=== PATIENT | female | born 1940 | race Caucasian/White ===

== ENCOUNTER 2021-08-26 13:36 | Outpatient (CLI) | payer MEDICARE, SELFPAY ==
--- NOTE | 2021-08-26 13:46 | XR_ITS ---
WS: [id number] SCREENING DEXA SCAN [employer] CLINICAL INFORMATION: OSTEOPOROSIS COMPARISON: None. FINDINGS: The L1-L4 bone mineral density measures 1.04. This corresponds to a T score score of -1.1 and Z score of 0.1. Left femoral neck bone mineral density measures 0.887 g/cm2. This corresponds to a T score of -1.0 an d Z score of 0.6. Right femoral neck bone mineral density measures 0.873 g/cm2. This corresponds to a T score -1.1of an d Z score of 0.5. Mean femoral neck bone mineral density measures 0.880 g/cm2. This corresponds to a T score of -1.0 an d Z score of 0.5. XR/XR DEXA axial skeleton* 36340 IMPRESSION: Osteopenia at the lower end of the range. Patient's FRAX calculated 10 year probability for major osteoporotic fracture i s 26.8 % and osteoporotic hip fracture is 16.6%.
== END 2021-08-26 13:37 | disposition home or self-care (01) ==
LOC: RAD 13:40
PROVIDERS: Family Provider Internal Medicine; Visit Provider Physician Assistant
DX: M81.0 Age-related osteoporosis without current pathological fracture (principal); M85.80 Other specified disorders of bone density and structure, unspecified site
CPT/HCPCS: 77080

== ENCOUNTER → 2023-04-10 08:33 | Outpatient (BNVA) | payer MEDICARE, SELFPAY | PROVIDERS: Family Provider Internal Medicine; PCP Internal Medicine; Visit Provider Dermatology | DX: D48.5 Neoplasm of uncertain behavior of skin (principal); L57.0 Actinic keratosis; L57.8 Other skin changes due to chronic exposure to nonionizing radiation; L82.1 Other seborrheic keratosis; D18.01 Hemangioma of skin and subcutaneous tissue; L81.4 Other melanin hyperpigmentation | CPT/HCPCS: 11102; 17000; 99203 ==

== ENCOUNTER → 2023-05-03 08:04 | Outpatient (BNVA) | payer MEDICARE, SELFPAY | PROVIDERS: Family Provider Internal Medicine; PCP Internal Medicine; Visit Provider Dermatology | DX: C44.41 Basal cell carcinoma of skin of scalp and neck (principal) | CPT/HCPCS: 12032; 17311 ==

== ENCOUNTER → 2023-05-17 10:41 | Outpatient (BNVA) | payer MEDICARE, SELFPAY | PROVIDERS: Family Provider Internal Medicine; PCP Internal Medicine; Visit Provider Nurse Practitioner Family | DX: Z48.02 Encounter for removal of sutures (principal) | CPT/HCPCS: 99212 ==

== ENCOUNTER → 2023-07-18 11:23 | Outpatient (BNVA) | payer MEDICARE, SELFPAY | PROVIDERS: Family Provider Internal Medicine; PCP Internal Medicine; Visit Provider Nurse Practitioner Family | DX: L82.1 Other seborrheic keratosis (principal); L57.0 Actinic keratosis; L21.8 Other seborrheic dermatitis; L73.8 Other specified follicular disorders; D22.5 Melanocytic nevi of trunk | CPT/HCPCS: 17000; 99214 ==

== ENCOUNTER 2024-01-04 06:00 | Outpatient (CLI) | payer MEDICARE, OTHER, SELFPAY | END 2024-01-04 06:01 | disposition home or self-care (01) | LOC: RAD 01-29 06:20 | PROVIDERS: PCP Internal Medicine; Visit Provider Student in an Organized Health Care Education/Training Program | DX: M16.11 Unilateral primary osteoarthritis, right hip (principal) | CPT/HCPCS: 99204 ==

== ENCOUNTER → 2024-01-04 10:45 | Outpatient (BNVA) | payer MEDICARE, SELFPAY | PROVIDERS: PCP Internal Medicine; Visit Provider Student in an Organized Health Care Education/Training Program | DX: M16.11 Unilateral primary osteoarthritis, right hip | CPT/HCPCS: 73502 ==

== ENCOUNTER → 2024-01-17 10:13 | Outpatient (BNVA) | payer MEDICARE, OTHER, SELFPAY | PROVIDERS: PCP Internal Medicine; Visit Provider Nurse Practitioner Family | DX: L57.0 Actinic keratosis (principal); L21.8 Other seborrheic dermatitis; L73.8 Other specified follicular disorders; D22.5 Melanocytic nevi of trunk; Z85.828 Personal history of other malignant neoplasm of skin | CPT/HCPCS: 17000; 99214 ==

== ENCOUNTER 2024-02-11 11:46 | Outpatient (CLI) | payer MEDICARE, OTHER, SELFPAY ==
[2024-02-11 12:40] LABS: Basophils # 0.1 10^3/uL (0.0-0.1); Basophils % 0.6 %; Eosinophils # 0.4 10^3/uL (0.0-0.8); Lymphocytes # 3.3 10^3/uL (0.8-4.8); Lymphocytes % 35.5 %; Mean Corpuscular HGB Conc 31.2 g/dL (30-55); Mean Corpuscular Hemoglobin 29.4 pg (27-33); Mean Corpuscular Volume 94.3 fl (85-98); Mean Platelet Volume 9.6 fL (7.4-10.4); Monocytes # 0.7 10^3/uL (0.2-0.9); Monocytes % 7.3 %; Neutrophils # 4.93 10^3/uL (1.8-7.7); Neutrophils % 52.4 %; Nucleated Red Blood Cells % 0 %; Platelet Count 357 10^3/cmm (157-399); Red Blood Count 4.56 10^6/uL (3.85-5.65); White Blood Count 9.42 10^3/uL (3.29-11.43)
[2024-02-11 12:50] LABS: Alanine Aminotransferase 12 U/L (0-33); Alkaline Phosphatase 101 U/L (35-105); Aspartate Amino Transferase 13 U/L (0-32); Blood Urea Nitrogen 22 mg/dL (8-23); Calcium 9.4 mg/dL (8.5-10.5); Carbon Dioxide 26 mmol/L (22-29); Chloride 103 mmol/L (98-107); Globulin 3.3 g/dL (1.3-4.6); Glucose 206 mg/dL (65-115); Osmolality Calculated 299 mOsm/kg (285-295); Sodium 140 mmol/L (136-145); Total Bilirubin 1.7 mg/dL (0.15-1.2); Total Protein 7.3 g/dL (6.6-8.7)
[2024-02-11 13:33] LABS: Bilirubin Urine Negative (Negative); Blood Urine Non-haemolysed trace (Negative); Glucose Urine UA Negative (Normal); Ketones Urine Negative (Negative); Leukocyte Esterase Urine 3+ (Negative); Nitrate Urine Positive (Negative); Protein Urine Trace (Negative); Specific Gravity, Urine 1.014 (1.005-1.030); Urine Appearance Cloudy (CLEAR); Urine Color Yellow (Yellow)
[2024-02-11 13:39] LABS: Add Urine Microscopic? YES; Bacteria Urine EXCEEDS /hpf; Hyaline Casts Urine 2.05 /lpf; WBC Urine 21-50 /hpf (0-5)
[2024-02-11 13:54] LABS: Add Urine Culture? Yes
== END 2024-02-11 11:47 | disposition home or self-care (01) ==
LOC: LAB 11:48
PROVIDERS: PCP Internal Medicine; Visit Provider Student in an Organized Health Care Education/Training Program
DX: Z01.818 Encounter for other preprocedural examination (principal)
CPT/HCPCS: 36415; 80053; 81001; 85025; 87086

== ENCOUNTER 2024-02-15 12:04 | Observation (INO) | payer MEDICARE, SELFPAY ==
[2024-02-15] VITALS (8 sets, daily range): BP systolic 162–183; BP diastolic 79–95; PULSE 79–94; RESP 15–18; TEMP 36.6–36.7; O2SAT 92–96; BMI 29.9
--- NOTE | 2024-02-15 12:30 | XR_ITS ---
WS: [id number] Portable AP upright chest, 02/15/2024 Clinical Data: tia Comparison: Portable chest, 02/07/2018 Findings: No nodules, masses or effusions are seen. The heart is normal. The pulmonary vascularity is not increased. No pneumonia or pneumothorax is seen. The aortic arch shows minimal calcification. Th ere is a hiatal hernia behind the heart. Monitor leads are on the chest wall. XR/XR chest 1V portable [id number] Impression: Atherosclerosis.
--- NOTE | 2024-02-15 12:31 | ECG_ITS ---
[facility] Test Date: 2024-02-15 Pat Name: Parris Shin Department: Room: Gender: Female Transaction Coordinator: : 1940 Requested By: Bg Reilly Order Number: [id number] Benito MD: Prosper Mcgill M.D. Measurements Intervals [place] Rate: 83 P: 36 MD: 151 QRS: 36 QRSD: 77 T: 48 QT: 367 QTc: 431 Interpretive Statements SINUS RHYTHM POSSIBLE RIGHT VENTRICULAR CONDUCTION DELAY [RSR (QR) IN V1/V2] Compared to ECG 02/07/2018 09:19:56 No significant changes Electronically Signed On 02-15-2024 20:18:43 CDT by Prosper Mcgill M.D. [email or web address]
--- NOTE | 2024-02-15 12:35 | CT_ITS ---
WS: [id number] CT HEAD TECHNIQUE: Noncontrast CT of the head obtained from the skullbase to the vertex. CLINICAL INFORMATION: RT SIDED WEAKNESS COMPARISON: 2018 DLP: [address] scans at [facility] use at least one of these dose optimization techniques: automated e xposure control; mA and/or kV adjustment per patient size (includes targeted exams where dose is matc hed to clinical indication); or iterative reconstruction. FINDINGS: No evidence of intracranial hemorrhage or mass effect. Ventricular system and basal cisterns are murray nt. Mild small vessel changes with mild parenchymal volume loss. Tiny chronic lacunar infarcts LEFT b vick ganglia. Chronic appearing low-attenuation change in the LEFT frontal parietal white matter Small amount of fluid RIGHT maxillary sinus. Mild mucosal thickening in the paranasal sinuses. Mucosa l thickening in the sphenoid sinuses. Mastoid air cells are well aerated. CT/CT head thrombolytic 50196 IMPRESSION: 1. No evidence of intracranial hemorrhage or mass effect 2. Slight low-attenuation change in the LEFT MCA territory likely chronic or small vessel in etiology. 3. A few tiny chronic lacunar infarcts LEFT basal ganglia. 4. Vascular calcification 5. No acute intracranial findings. Notified Bg Reilly DO at 02/15/2024 12:43 PM.
--- NOTE | 2024-02-15 12:51 | ED_ITS ---
HPI - Neuro Symptoms/Deficit 2 General: Chief Complaint: Neuro Symptoms/Deficit Stated Complaint: neuro symptoms Time Seen by Provider: 02/15/24 12:32 History of Present Illness: Patient presents to the ER with trouble speaking. She reports that she knows the words she wants to say but she just cannot get them out. Also report numbness on the right side of her face and her right hand specifically the third fourth and fifth digits. Patient said these symptoms started about 1135 and by the time she arrived here approximate 1 hour later they were all resolving. Patient has not take any anticoagulation other than a daily aspirin. Patient does have high blood pressure and usually takes her medicine at night. Related Data Home Medications Medication Instructions Recorded Confirmed atorvastatin 20 mg tablet 20 mg PO DAILY 01/04/24 02/15/24 cholecalciferol (vitamin D3) 25 25 mcg PO DAILY 01/04/24 02/15/24 mcg (1,000 unit) capsule lisinopril 40 mg tablet 40 mg PO DAILY 01/04/24 02/15/24 meloxicam 15 mg tablet 15 mg PO DAILY 01/04/24 02/15/24 omeprazole 20 mg capsule,delayed 20 mg PO DAILY 01/04/24 02/15/24 release albuterol sulfate 90 mcg/actuation 2 puff inhalation Q4H PRN 02/15/24 02/15/24 aerosol inhaler Shortness Of Breath ketoconazole 2 % shampoo See Rx Instructions .Route .COMPLEX 02/15/24 02/15/24 mometasone 0.1 % topical solution 1 applic topical DAILY PRN Itching 02/15/24 02/15/24 Allergies Allergy/AdvReac Type Severity Reaction Status Date / Time Penicillins Allergy Intermediate Unknown Verified 01/04/24 10:58 Sulfa (Sulfonamide Allergy Intermediate Unknown Verified 01/04/24 10:58 Antibiotics) Review of Systems 2 General: Reports: 10 or more systems reviewed and unremarkable except in HPI and below PFSH ED 2 PFSH: Social History Smoking and tobacco/nicotine status: never used tobacco/nicotine NIH stroke score 2 NIHSS: Level Of Consciousness - 1a: 0 Level Of Consciousness Questions - 1b: Both Correct Level Of Consciousness Commands - 1c: Both Correct Best Gaze - 2: Normal Visual Colin - 3: No Visual Loss Facial Palsy - 4: N ormal Motor Arm Right - 5: No Drift Motor Arm Left - 5: No Drift Motor Leg Right - 6: No Drift Motor Leg Left - 6: No Drift Limb Ataxia - 7: A bsent Sensory - 8: Normal Best Language - 9: No Aphasia Dysarthia - 10: Normal Extinction And Inattention - 11: 0 Score: Total Score: 0 Physical Exam 2 Const: COMMON NORMALS: no acute distress, average body habitus, patient oriented x3, no limitations, healthy appearing, alert and well nourished HENMT: COMMON NORMALS: normocephalic, atraumatic, hearing grossly normal bilaterally, external ears normal, Normal external nose present and moist oral mucous membranes HEAD & SCALP: normocephalic and atraumatic NOSE: Normal external nose present EXTERNAL EAR: Yes external ears normal Eye: COMMON NORMALS: Equal, round and reactive pupils present, EOMs intact bilaterally, conjunctivae normal and no scleral icterus CONJUNCTIVA: Yes conjunctivae normal PUPIL: Yes Equal, round and reactive pupils present Neck/C-Spine: COMMON NORMALS: full ROM, no lymphadenopathy, supple, no meningeal signs, no JVD and Thyroid normal THYROID: Thyroid normal Chest: COMMONS NORMALS: normal inspection of the chest and normal palpation of entire chest wall Resp: COMMON NORMALS: normal respiratory effort, No retractions, No use of accessory muscles and clear to auscultation bilaterally AUSCULTATION: clear to auscultation bilaterally Cardio: COMMON NORMALS: no JVD, regular rate, regular rhythm, S1 normal heart sound present, S2 normal heart sound present, No gallops present (Cardio), No clicks present (Cardio), No murmurs present (Cardio) and No rub (Cardio) R ATE: regular rate RHYTHM: regular rhythm HEART SOUNDS: S1 normal heart sound present and S2 normal heart sound present GI: COMMON NORMALS: Normal to inspection, nondistended, normoactive bowel sounds present, Soft to palpation, non-tender, No hepatosplenomegaly present and no masses PALPATION: Yes Soft to palpation and Yes No hepatosplenomegaly present Neuro: COMMON NORMALS: patient oriented x3 SENSORIUM/ORIENTATION: Yes alert MENINGEAL SIGNS: Yes no meningeal signs Course 2 Vital Signs: Vital signs: Vital Signs Pulse Rate 79 02/15/24 14:00 Respiratory Rate 18 02/15/24 13:30 Blood Pressure 183/87 02/15/24 14:00 Pulse Oximetry 92 02/15/24 14:00 MDM - Neuro Symptoms/Deficit Medical Decision Making Code stroke was called on the patient patient was taken immediately back to CT where she had a negative CT scan. Patient was aphasic and could not get her words out for approximately 1 hour. Patient symptoms did resolve. Dr. Tolbert was notified while she was down here seeing another patient. We will admit the patient for TIA to complete the further workup. Patient was discussed with Dr. Garcia accepts the patient in transfer. Differential Diagnosis Likely cerebrovascular accident and transient cerebral ischemia Medical Records I reviewed the patient's medical records. Lab Data I reviewed the patient's lab results. 02/15/24 12:50 02/15/24 12:50 Radiology Impressions Chest X-Ray 02/15/24 12:30 Impression: Atherosclerosis. Head CT 02/15/24 12:35 IMPRESSION: 1. No evidence of intracranial hemorrhage or mass effect 2. Slight low-attenuation change in the LEFT MCA territory likely chronic or small vessel in etiology. 3. A few tiny chronic lacunar infarcts LEFT basal ganglia. 4. Vascular calcification 5. No acute intracranial findings. Notified Bg Reilly DO at 02/15/2024 12:43 PM. Laboratory Results WBC 8.00 10^3/uL (3.29-11.43) 02/15/24 12:50 RBC 4.55 10^6/uL (3.85-5.65) 02/15/24 12:50 Hgb 13.60 g/dL (11.27-16.99) 02/15/24 12:50 Hct 43.4 % (36-47) 02/15/24 12:50 MCV 95.4 fl (85-98) 02/15/24 12:50 MCH 29.9 pg (27-33) 02/15/24 12:50 MCHC 31.3 g/dL (30-55) 02/15/24 12:50 RDW 13.1 % (12.1-15.1) 02/15/24 12:50 Plt Count 338 10^3/cmm (157-399) 02/15/24 12:50 MPV 9.4 fL (7.4-10.4) 02/15/24 12:50 Neut % (Auto) 54.1 % 02/15/24 12:50 Lymph % (Auto) 32.5 % 02/15/24 12:50 [place] % (Auto) 9.1 % 02/15/24 12:50 Eos % (Auto) 3.5 % 02/15/24 12:50 Baso % (Auto) 0.4 % 02/15/24 12:50 Neut # (Auto) 4.33 10^3/uL (1.8-7.7) 02/15/24 12:50 Lymph # (Auto) 2.6 10^3/uL (0.8-4.8) 02/15/24 12:50 [place] # (Auto) 0.7 10^3/uL (0.2-0.9) 02/15/24 12:50 Eos # (Auto) 0.3 10^3/uL (0.0-0.8) 02/15/24 12:50 Baso # (Auto) 0.0 10^3/uL (0.0-0.1) 02/15/24 12:50 Nucleated RBC % (auto) 0 % 02/15/24 12:50 Nucleated RBCs # 0.0 /100WBC 02/15/24 12:50 PT 13.00 SECONDS (12.1-14.9) 02/15/24 12:50 INR 0.95 (0.8-1.2) 02/15/24 12:50 APTT 25.9 SECONDS (23.9-36.7) 02/15/24 12:50 Sodium 143 mmol/L (136-145) 02/15/24 12:50 Potassium 4.3 mmol/L (3.5-5.1) 02/15/24 12:50 Chloride 105 mmol/L (98-107) 02/15/24 12:50 Carbon Dioxide 28 mmol/L (22-29) 02/15/24 12:50 Anion Gap 14.3 (5-19) 02/15/24 12:50 BUN 22 mg/dL (8-23) 02/15/24 12:50 Creatinine 1.3 mg/dL (0.5-0.9) H 02/15/24 12:50 GFR Calculation Not Reportable 02/15/24 12:50 Glucose 140 mg/dL (65-115) H 02/15/24 12:50 Calculated Osmolality 302 mOsm/kg (285-295) H 02/15/24 12:50 Calcium 9.3 mg/dL (8.5-10.5) 02/15/24 12:50 Magnesium 1.6 mg/dL (1.7-2.3) L 02/15/24 12:50 Total Bilirubin 1.7 mg/dL (0.15-1.2) H 02/15/24 12:50 AST 12 U/L (0-32) 02/15/24 12:50 ALT 10 U/L (0-33) 02/15/24 12:50 Alkaline Phosphatase 102 U/L (35-105) 02/15/24 12:50 C-Reactive Protein 3.0 mg/L (0.0-4.9) 02/15/24 12:50 Total Protein 7.3 g/dL (6.6-8.7) 02/15/24 12:50 Albumin 4.0 g/dL (3.5-5.2) 02/15/24 12:50 Globulin 3.3 g/dL (1.3-4.6) 02/15/24 12:50 TSH 2.20 uIU/mL (0.27-4.20) 02/15/24 12:50 Urine Color Yellow (Yellow) 02/15/24 13:14 Urine Appearance Cloudy (CLEAR) A 02/15/24 13:14 Urine pH 7.5 (5-7) 02/15/24 13:14 Ur Specific [place] 1.015 (1.005-1.030) 02/15/24 13:14 Urine Protein 1+ (Negative) A 02/15/24 13:14 Urine Glucose (UA) Negative (Normal) 02/15/24 13:14 Urine Ketones Negative (Negative) 02/15/24 13:14 Urine Blood Non-haemolysed trace (Negative) 02/15/24 13:14 Urine Nitrate Positive (Negative) A 02/15/24 13:14 Urine Bilirubin Negative (Negative) 02/15/24 13:14 Urine Urobilinogen 1.0 mg/dL (Negative) 02/15/24 13:14 Ur Leukocyte Esterase 2+ (Negative) A 02/15/24 13:14 Urine RBC 3-5 /hpf (0-2) 02/15/24 13:14 Urine WBC 21-50 /hpf (0-5) H 02/15/24 13:14 Ur Squamous Epith Cells 21-50 /hpf (0-5) 02/15/24 13:14 Amorphous Sediment Not Reportable 02/15/24 13:14 Urine Bacteria Exceeds /hpf (NONE) 02/15/24 13:14 Hyaline Casts 1.21 /lpf 02/15/24 13:14 Urine Opiates Screen Negative ng/mL (Negative) 02/15/24 13:14 Ur Barbiturates Screen Negative ng/mL (Negative) 02/15/24 13:14 Ur Phencyclidine Scrn Negative ng/mL (Negative) 02/15/24 13:14 Ur Amphetamines Screen Negative ng/mL (Negative) 02/15/24 13:14 U Benzodiazepines Scrn Negative ng/mL (Negative) 02/15/24 13:14 Urine Cocaine Screen Negative ng/mL (Negative) 02/15/24 13:14 U Marijuana (THC) Screen Negative ng/mL (Negative) 02/15/24 13:14 Ethyl Alcohol < 10 mg/dL (0-10) 02/15/24 12:50 All radiology interpretation(s) finalized by discharge Discharge Plan Discharge Patient Disposition: Placed in Observation Clinical Impression: Brain TIA Coding Level of Care Code ED Managed Services Consultant for Luca Kerr
--- NOTE | 2024-02-15 12:54 | PC.PHAR ---
Pt has rx for Hydrocodone-apap 5-325mg 1 tablet po bid prn last fill 11/28/23 30ds #60. Pt states has but no longer taking-doesn't help and makes her feel funny.
[2024-02-15 13:02] LABS: Basophils % 0.4 %; Eosinophils # 0.3 10^3/uL (0.0-0.8); Eosinophils % 3.5 %; Hematocrit 43.4 % (36-47); Lymphocytes # 2.6 10^3/uL (0.8-4.8); Lymphocytes % 32.5 %; Mean Corpuscular HGB Conc 31.3 g/dL (30-55); Mean Corpuscular Hemoglobin 29.9 pg (27-33); Mean Corpuscular Volume 95.4 fl (85-98); Mean Platelet Volume 9.4 fL (7.4-10.4); Monocytes # 0.7 10^3/uL (0.2-0.9); Monocytes % 9.1 %; Neutrophils # 4.33 10^3/uL (1.8-7.7); Neutrophils % 54.1 %; Nucleated Red Blood Cells % 0 %; Platelet Count 338 10^3/cmm (157-399); Red Blood Count 4.55 10^6/uL (3.85-5.65); Red Cell Distribution Width 13.1 % (12.1-15.1)
[2024-02-15 13:19] LABS: INR 0.95 (0.8-1.2); Partial Thromboplastin Time 25.9 SECONDS (23.9-36.7)
[2024-02-15 13:34] LABS: Bilirubin Urine Negative (Negative); Blood Urine Non-haemolysed trace (Negative); Glucose Urine UA Negative (Normal); Ketones Urine Negative (Negative); Leukocyte Esterase Urine 2+ (Negative); Nitrate Urine Positive (Negative); Protein Urine 1+ (Negative); Specific Gravity, Urine 1.015 (1.005-1.030); Urine Appearance Cloudy (CLEAR); Urine Color Yellow (Yellow); pH Urine 7.5 (5-7)
[2024-02-15 13:38] LABS: Alanine Aminotransferase 10 U/L (0-33); Alkaline Phosphatase 102 U/L (35-105); Aspartate Amino Transferase 12 U/L (0-32); Blood Urea Nitrogen 22 mg/dL (8-23); Calcium 9.3 mg/dL (8.5-10.5); Carbon Dioxide 28 mmol/L (22-29); Chloride 105 mmol/L (98-107); Globulin 3.3 g/dL (1.3-4.6); Glucose 140 mg/dL (65-115); Magnesium 1.6 mg/dL (1.7-2.3); Osmolality Calculated 302 mOsm/kg (285-295); Sodium 143 mmol/L (136-145); Total Bilirubin 1.7 mg/dL (0.15-1.2); Total Protein 7.3 g/dL (6.6-8.7)
[2024-02-15 13:39] LABS: Add Urine Microscopic? YES; Bacteria Urine EXCEEDS /hpf; Hyaline Casts Urine 1.21 /lpf; Squamous Epithelial Cell Urine 21-50 /hpf (0-5); WBC Urine 21-50 /hpf (0-5)
[2024-02-15 13:41] LABS: Alcohol Level < 10 mg/dL (0-10)
[2024-02-15 13:42] LABS: Anion Gap 14.3 (5-19); Potassium 4.3 mmol/L (3.5-5.1)
[2024-02-15 13:43] LABS: Amphetamines Screen Urine Negative (Negative); Barbiturates Screen Urine Negative (Negative); Benzodiazepines Screen Urine Negative (Negative); Cocaine Screen Urine Negative (Negative); Opiate Screen Urine Negative (Negative); PCP Screen Urine Negative (Negative); THC Screen Urine Negative (Negative)
[2024-02-15 13:46] LABS: Add Urine Culture? Yes
--- NOTE | 2024-02-15 15:28 | P.HP_ITS ---
Providers/Chief Complaint 2 Admitting Physician: Sheila Garcia MD Primary Care Provider: Tushar Martinez DO Chief Complaint: neuro symptoms History of Present Illness Parris Shin is a 83 year old female with past medical history of right hip osteoarthritis, hyperlipidemia, hypertension, GERD presented with aphasia which started 1130 this morning. Patient reports she will do words but was not able to get the words out of her mouth. She also complained of right-sided facial numbness and right hand numbness specifically third, fourth and fifth digits. Denied any complaint of chest pain, palpitations, vomiting, nausea, dizziness or loss of consciousness. Never had similar complaints in the past. Her symptoms resolved on arrival in ER. She says she is usually active and able to do her ADLs. On arrival in ER she was found to have blood pressure in 180s. Current blood pressure is 169/81. Neurology consulted in ER recommended for MRI brain without contrast and echo. Review of Systems 2 General: Reports: 10 or more systems reviewed and unremarkable except in HPI and below Medications/Allergies Home Medications Medication Instructions Recorded Confirmed Last Taken Type atorvastatin 20 mg tablet 20 mg PO DAILY 01/04/24 02/15/24 02/14/24 History cholecalciferol (vitamin D3) 25 25 mcg PO DAILY 01/04/24 02/15/24 02/14/24 History mcg (1,000 unit) capsule lisinopril 40 mg tablet 40 mg PO DAILY 01/04/24 02/15/24 02/14/24 History meloxicam 15 mg tablet 15 mg PO DAILY 01/04/24 02/15/24 02/14/24 History omeprazole 20 mg capsule,delayed 20 mg PO DAILY 01/04/24 02/15/24 02/14/24 History release albuterol sulfate 90 mcg/actuation 2 puff inhalation Q4H PRN 02/15/24 02/15/24 Unknown History aerosol inhaler Shortness Of Breath ketoconazole 2 % shampoo See Rx Instructions .Route .COMPLEX 02/15/24 02/15/24 Unknown History mometasone 0.1 % topical solution 1 applic topical DAILY PRN Itching 02/15/24 02/15/24 Unknown History Allergies Allergy/AdvReac Type Severity Reaction Status Date / Time Penicillins Allergy Intermediate Unknown Verified 01/04/24 10:58 Sulfa (Sulfonamide Allergy Intermediate Unknown Verified 01/04/24 10:58 Antibiotics) PFSH Acute 2 PFSH: Social History Smoking and tobacco/nicotine status: never used tobacco/nicotine Vitals/I&O/Wt Last Vital Signs Pulse 88 02/15/24 15:15 Resp 18 02/15/24 15:15 BP 169/81 02/15/24 15:15 Pulse Ox 95 02/15/24 15:15 Physical Exam 2 Narrative: She is alert awake oriented x 3, hearing impaired but able to answer questions appropriately, not in acute distress Chest clear to auscultation bilaterally Cardiovascular normal heart sounds Abdomen soft nontender nondistended normal bowel sounds extremities no edema noted bilateral lower extremities Neurological speech normal, no motor or sensory deficits noted. Data 02/15/24 12:50 02/15/24 12:50 A&P Assessment and plan (1) Brain TIA: (2) UTI (urinary tract infection): Qualifiers: Urinary tract infection type: acute cystitis Hematuria presence: w [facility] hematuria Qualified Code(s): N30.00 - Acute cystitis without hematuria Plan Parris Shin is a 83 year old female with past medical history of right hip osteoarthritis, hyperlipidemia, hypertension, GERD presented with aphasia, right facial numbness and hand numbness which resolved 1 hour later on arrival to ER likely secondary to TIA, also found to have UA positive and uncontrolled blood pressure. #TIA-neurology consulted in ER Follow-up for further recommendations Check MRI brain without contrast 2D echo Fall precautions Neurochecks Bedside swallow eval and resume diet if normal. Permissive hypertension Will do aspirin, Plavix and Lipitor as per neurology recommendations. #UTI-has history of chronic UTIs but responsive to oral antibiotics as outpatient. Will start on IV ceftriaxone 1 g daily. #Hypertension-continue ADMINISTRATIVE COORDINATOR lisinopril 40 mg daily #Hyperlipidemia-continue ADMINISTRATIVE COORDINATOR atorvastatin 20 mg daily #Right hip osteoarthritis-continue ADMINISTRATIVE COORDINATOR meloxicam 15 mg daily #GERD-will do IV Pepcid 20 mg twice daily Diet-n.p.o. with sips and meds GI prophylaxis with Pepcid DVT prophylaxis with SCD CODE STATUS discussed with patient and family, she is full code for now. Attestations 2 Medical Necessity Statement*: She needs continued hospitalization not crossing 2 midnights from workup for TIA with MRI brain without contrast and 2D echo Time Spent in Patient Care: 40mins Coding Level of Care Code Acute Code for Chg Fwd Diagnoses Brain TIA G45.9 Acute cystitis without hematuria N30.00 Urinary tract infection type: acute cystitis Hematuria presence: without hematuria Time Spent (min) 40
--- NOTE | 2024-02-15 15:53 | USCV_ITS ---
Parris Shin Age: 83 Gender: F : 1940 Exam Date: 02/15/2024 16:12 Ordering Phys: Sheila Garcia MD Technologist: CT Exam Location: [facility] [place] Indication: TIA BP: 130 / 79 HR: 81 Rhythm: Sinus Technical Quality: Adequate MEASUREMENTS (Male / Female) Normal Values 2D ECHO LVOT Diameter 2.1 cm LV Ejection Fraction MOD 4C 45.8 % LV Ejection Fraction MOD 2C 58.1 % LV Ejection Fraction 2C AL 59.8 % LA Diameter 3.9 cm RA Systolic Volume 4C AL 23.2 ml RA Systolic Volume 4C MOD 23.4 ml LA Sys Volume AL 39.3 cm cubed LA Sys Volume Index AL 20.0 cm cubed/m squared Aorta at Sinotubular Diameter 2.6 cm IVC Diameter 1.7 cm M-MODE LA Ao Ratio MM 1.7 AV Cusp Separation MM 1.8 cm DOPPLER AV Peak Velocity 138.0 cm/s LVOT Peak Velocity 92.0 cm/s AV Area Cont Eq vti 2.5 cm squared AV Area Cont Eq pk 2.3 cm squared MV Peak Velocity 103.0 cm/s MV Area PHT 3.9 cm squared Mitral E to A Ratio 0.8 TR Peak Velocity 178.0 cm/s TR Peak Gradient 12.7 mmHg TV Peak E Velocity 75.0 cm/s Right Atrial Pressure 3.0 mmHg Pulmonary Artery Systolic Pressu 15.7 mmHg PV Peak Velocity 107.5 cm/s FINDINGS Left Ventricle Left ventricle is normal size. LV systolic function is normal with EF 55 to 60%. No regional wall motion abnormalities are seen. Grade 1 diastolic dysfunction Right Ventricle Normal in size and function Right Atrium Normal in size Left Atrium Normal in size Mitral Valve Mild mitral annular calcification. Trace mitral regurgitation. Aortic Valve Structurally normal aortic valve. No significant stenosis or regurgitation. Tricuspid Valve Trace tricuspid regurgitation. Insufficient TR jet to calculate RVSP Pulmonic Valve Mild pulmonic regurgitation. Pericardium Normal Aorta Normal in size IVC Appears to be normal CONCLUSIONS LV systolic function is normal with EF of 55-60% Grade 1 diastolic dysfunction Trace mitral regurgitation Trace tricuspid regurgitation Mild pulmonic regurgitation Malcolm Baugh MD (Electronically Signed) Final Date: 16 February 2024 11:24 S
[2024-02-15] MEDS: famotidine 20 mg/2 mL INJ IVP (17:25)
[2024-02-15] MEDS: levofloxacin-dextrose 5 % 750 MG/150 ML PREMIX 100 MG IV (17:25)
[2024-02-15] MEDS: sodium chloride 0.9% 1,000 ML 60 ML IV (17:26)
--- NOTE | 2024-02-15 19:17 | P.PNCC_ITS ---
Stroke Alert Activation ED Arrival Date: 02/15/24 ED Arrival Time: 12:06 ED Physican at Bedside: 12:32 Last Known Normal/at Baseline: < 1 hour ago Other Last Known Well Infomation: She was brought by private vehicle by her daughter and her granddaughter. She says that she was sitting in the living room and talking with her granddaughter when she discovered that the words would not come. She could think of the words in her head but she could not say them. She was able to walk to the car with her granddaughter under her own power. She was evaluated in triage and stroke team was activated. I called the emergency department when stroke team was activated and they notified me that the patient had expressive aphasia. I came directly to the ER and talked with Dr. Reilly. I then did a full neurologic exam on this patient and discovered that she is scheduled to have hip replacement in 2 weeks so putting her on antiplatelet therapy is going to be problematic for her. I made a commitment to see her in my office next week to clear her for surgery. She had some type of ischemic stroke 5 years ago but recovered. She does not believe she had any motor deficit during this experience earlier today. Her risk for stroke includes hypertension and she stopped aspirin recently because her joints have been bothering her and she is taking meloxicam. Stroke Alert Activated by: Triage Stroke Alert Activation Date: 02/15/24 Stroke Alert Activation Time: 12:12 Stroke MD @ Bedside Date: 02/15/24 Stroke MD @ Bedside Time: 12:20 NIH Stroke Scale Time: 12:20 NIH stroke score NIHSS: Level Of Consciousness - 1a: 0 Level Of Consciousness Questions - 1b: Both Correct Level Of Consciousness Commands - 1c: Both Correct Best Gaze - 2: Normal Visual Colin - 3: No Visual Loss Facial Palsy - 4: Normal Motor Arm Right - 5: No Drift Motor Arm Left - 5: No Drift Motor Leg Right - 6: No Drift Motor Leg Left - 6: No Drift Limb Ataxia - 7: Absent Sensory - 8: Normal Best Language - 9: No Aphasia Dysarthia - 10: Normal Extinction And Inattention - 11: 0 Score: Total Score: 0 Stroke Alert Data/Treatment Time to CT of Head: 12:35 CT Impression: 1. No evidence of intracranial hemorrha ge or mass effect 2. Slight low-attenuation change in the LEFT MCA territory likely chronic or small vessel in etiology. 3. A few tiny chronic lacunar infarcts LEFT basal ganglia. 4. Vascular calcification 5. No acute intracranial findings. Notified Bg Reilly, DO at 02/15/2024 12:43 PM. Signed By: Tonny Samuels MD Signed Date/Time: 02/15/24 Stroke Risk Factors: hypertension tPA Contraindication: tPA Contraindication: Treatment not indcated tPA Admin Prior to Arrival: No Patient & Family Educated on: Cause of Stroke, Risk Factors and Treament Plan Other Patient & Family Education: She needs to go back on aspirin and double her atorvastatin as she is only taking 20 mg daily. I discussed this with Dr. Reilly. I made an appointment for next week to see the patient in the clinic. I asked Dr. Reilly to do CTA prior to discharge. And she needs to have an echo. Critical Care Time Critical Care Time: 30 - 74 mins A&P Assessment and plan (1) TIA involving left internal carotid artery: 83-year-old woman who is in good health for her age. Risk factor for stroke includes hypertension. Her TIA was brisk but involved left middle cerebral artery distribution as she knew what she wanted to say but could not speak. The safest plan would be to start her on dual antiplatelet therapy but that is going to be a problem right now as she is having hip surgery in just over a week. An aggressive workup would be a good idea for preoperative reasons at this time and CT angiogram and echocardiogram would be the minimum. This could be done as outpatient or acutely as inpatient is probably preferable. Dr. Reilly decided to have the patient admitted. I made a commitment to see her in the office in a week and my staff called and appointment to the ER. She is scheduled to see me on 02/20/2024 at 1300 hrs. she is scheduled to be seen by Dr. Leon for preoperative evaluation on 02/18/2024 at 11 AM. We should make sure that all of her studies are done prior to that. Coding Level of Care Code Acute Code for Chg Fwd Diagnoses TIA involving left internal carotid artery G45.1
[2024-02-16] VITALS: BP 157/70; PULSE 87; RESP 14; TEMP 36.6; O2SAT 93
[2024-02-16] MEDS: famotidine 20 mg/2 mL INJ IVP (03:30)
[2024-02-16 04:00] VITALS: BP 160/79; PULSE 83; RESP 13; TEMP 36.5; O2SAT 94
[2024-02-16 05:16] LABS: Basophils % 0.4 %; Eosinophils # 0.3 10^3/uL (0.0-0.8); Eosinophils % 3.8 %; Hematocrit 40.5 % (36-47); Lymphocytes # 2.9 10^3/uL (0.8-4.8); Lymphocytes % 31.8 %; Mean Corpuscular HGB Conc 31.1 g/dL (30-55); Mean Corpuscular Hemoglobin 29.4 pg (27-33); Mean Corpuscular Volume 94.6 fl (85-98); Mean Platelet Volume 9.5 fL (7.4-10.4); Monocytes # 0.9 10^3/uL (0.2-0.9); Monocytes % 10.4 %; Neutrophils # 4.77 10^3/uL (1.8-7.7); Neutrophils % 53.3 %; Nucleated Red Blood Cells % 0 %; Platelet Count 327 10^3/cmm (157-399); Red Blood Count 4.28 10^6/uL (3.85-5.65); White Blood Count 8.96 10^3/uL (3.29-11.43)
[2024-02-16 05:38] LABS: Blood Urea Nitrogen 22 mg/dL (8-23); Calcium 9.2 mg/dL (8.5-10.5); Carbon Dioxide 26 mmol/L (22-29); Chloride 104 mmol/L (98-107); Creatinine Clr Calc Pharmacy 34.9085; Glucose 128 mg/dL (65-115); Magnesium 1.5 mg/dL (1.7-2.3); Osmolality Calculated 291 mOsm/kg (285-295); Sodium 138 mmol/L (136-145)
--- NOTE | 2024-02-16 07:56 | CTR_ITS ---
PROCEDURE INFORMATION: Exam: CTA Head With Contrast, Arteriography Exam date and time: 02/16/2024 8:27 AM Age: 83 years old Clinical indication: Weakness; Additional info: TIA TECHNIQUE: Imaging protocol: Computed tomographic angiography of the head with contrast. Exam focused on the arteries. 3D rendering (Not supervised by radiologist): MIP and/or 3D reconstructed images were created by the technologist. Radiation optimization: All CT scans at this facility use at least one of these dose optimization techniques: automated exposure control; mA and/or kV adjustment per patient size (includes targeted exams where dose is matched to clinical indication); or iterative reconstruction. Contrast material: OMNI 350; Contrast volume: 100 ml; Contrast route: INTRAVENOUS (IV); COMPARISON: CT head thrombolytic [id number] 02/15/2024 12:15 PM RADIATION DOSE METRICS: Total DLP (mGy-cm): 1035.02 FINDINGS: ANTERIOR CIRCULATION: Right internal carotid artery: Intracranial segment is patent with no significant stenosis. No aneurysm. Right middle cerebral artery: No occlusion or significant stenosis. No aneurysm. Right anterior cerebral artery: No occlusion or significant stenosis. No aneurysm. Left internal carotid artery: Intracranial segment is patent with no significant stenosis. No aneurysm. Left middle cerebral artery: No occlusion or significant stenosis. No aneurysm. Left anterior cerebral artery: No occlusion or significant stenosis. No aneurysm. POSTERIOR CIRCULATION: Right vertebral artery: No occlusion or significant stenosis. No aneurysm. Left vertebral artery: No occlusion or significant stenosis. No aneurysm. Basilar artery: No occlusion or significant stenosis. No aneurysm. Right posterior cerebral artery: No occlusion or significant stenosis. No aneurysm. Left posterior cerebral artery: No occlusion or significant stenosis. No aneurysm. Brain: Bilateral periventricular white matter and centrum semiovale hypodensities, consistent with chronic ischemic small vessel disease. No recent infarct, intracranial bleed or mass. Cerebral ventricles: No ventriculomegaly. Orbital cavities: Post bilateral cataract surgery. Paranasal sinuses: Mild mucosal disease of the right maxillary sinus, bilateral sphenoid sinuses and bilateral ethmoid air cells. Bones/joints: Mild degenerative at the anterior C1-C2 articulation. Soft tissues: Unremarkable. PROCEDURE INFORMATION: Exam: CTA Neck With Contrast Exam date and time: 02/16/2024 8:27 AM Age: 83 years old Clinical indication: Weakness; Additional info: TIA TECHNIQUE: Imaging protocol: Computed tomographic angiography of the neck with contrast. Exam focused on the cervical segments of the vasculature. 3D rendering (Not supervised by radiologist): MIP and/or 3D reconstructed images were created by the technologist. Radiation optimization: All CT scans at this facility use at least one of these dose optimization techniques: automated exposure control; mA and/or kV adjustment per patient size (includes targeted exams where dose is matched to clinical indication); or iterative reconstruction. Contrast material: OMNI 350; Contrast volume: 100 ml; Contrast route: INTRAVENOUS (IV); COMPARISON: CT angio headneck* [id number] 02/07/2018 11:09 AM RADIATION DOSE METRICS: Total DLP (mGy-cm): 1035.02 FINDINGS: Right common carotid artery: No stenosis. No dissection or occlusion. Right internal carotid artery: No stenosis of the extracranial segment. No dissection or occlusion. Right external carotid artery: No occlusion or stenosis of the origin. Left common carotid artery: No stenosis. No dissection or occlusion. Left internal carotid artery: No stenosis of the extracranial segment. No dissection or occlusion. Left external carotid artery: No occlusion or stenosis of the origin. Right vertebral artery: No stenosis. No dissection or occlusion. Left vertebral artery: No stenosis. No dissection or occlusion. Soft tissues: Normal. No significant soft tissue swelling. Bones/joints: Mild degenerative disease of the cervical spine with posterior osteophyte disc complex at C4-C5, C5-C6 and C6-C7 levels with mild bony canal stenosis. CT/CT angio headne* [id number] IMPRESSION: 1. No large vessel occlusion. 2. No large territorial infarct or intracranial bleed. IMPRESSION: No significant stenosis. REFERENCES: NASCET CRITERIA. The degree of stenosis in the cervical segment of the internal carotid artery is based on NASCET criteria. Normal is no stenosis. Mild is less than 50% stenosis. Moderate is 50-69% stenosis. Severe is 70% to 99% stenosis. Total occlusion is no detectable patent lumen.
[2024-02-16 08:00] VITALS: BP 147/76; PULSE 87; RESP 15; TEMP 36.6; O2SAT 97
[2024-02-16 08:56] VITALS: PULSE 84; RESP 16; O2SAT 95
--- NOTE | 2024-02-16 09:00 | MRR_ITS ---
PROCEDURE INFORMATION: Exam: MR Head Without Contrast Exam date and time: 02/16/2024 8:48 AM Age: 83 years old Clinical indication: Altered mental status/memory loss; Confusion or disorientation; Additional info: TIA TECHNIQUE: Imaging protocol: Magnetic resonance imaging of the head without contrast. COMPARISON: CT angio headneck* [id number] 02/16/2024 8:27 AM FINDINGS: Brain: Bilateral periventricular white matter and centrum semiovale foci of high FLAIR signal, consistent with chronic ischemic small vessel disease. Diffuse cerebral atrophy, consistent with patient's age. No acute infarct. No intracranial bleed. No intracranial mass. Cerebral ventricles: Ventricles are in proportion to the degree of atrophy. Bones: Unremarkable. Paranasal sinuses: Mild mucosal disease of the right maxillary sinus and right anterior ethmoid air cells. Mastoid air cells: Normal as visualized. No mastoid effusion. Orbital cavities: Unremarkable. Soft tissues: Unremarkable. MR/MR head wo con* [id number] IMPRESSION: No acute infarct or acute intracranial bleed.
[2024-02-16] MEDS: sodium chloride 0.9% 1,000 ML 60 ML IV (09:52)
--- NOTE | 2024-02-16 09:53 | PC.NURSE ---
Pt takes medication at 2300 at night on home schedule. Pt plan to discharge today, so she refuses medication. Pt states she wants to take them this evening.
--- NOTE | 2024-02-16 10:15 | PM.DCS ---
Discharge Providers Date of Admission: 02/15/24 15:03 Date of Discharge: February 16, 2024 Attending Provider at Admission: Sheila Garcia MD Attending Provider at Discharge: Sheila Garcia MD Primary Care Provider: Tushar Martinez DO Diagnoses at Discharge Discharge Diagnosis (1) TIA involving left internal carotid artery: Status: Acute Reason for Visit Reason for Visit: neuro symptoms Brief History: Parris Shni is a 83 year old female with past medical history of right hip osteoarthritis, hyperlipidemia, hypertension, GERD presented with aphasia which started 1130 this morning. Patient reports she will do words but was not able to get the words out of her mouth. She also complained of right-sided facial numbness and right hand numbness specifically third, fourth and fifth digits. Denied any complaint of chest pain, palpitations, vomiting, nausea, dizziness or loss of consciousness. Never had similar complaints in the past. Her symptoms resolved on arrival in ER. She says she is usually active and able to do her ADLs. On arrival in ER she was found to have blood pressure in 180s. Current blood pressure is 169/81. Neurology consulted in ER recommended for MRI brain without contrast and echo. Hospital Course Hospital Course #TIA-neurology consulted in ER Follow-up for further recommendations Check MRI brain without contrast 2D echo Fall precautions Neurochecks Bedside swallow eval and resume diet if normal. Permissive hypertension Will do aspirin, Plavix and Lipitor as per neurology recommendations. #UTI-has history of chronic UTIs but responsive to oral antibiotics as outpatient. Will start on IV ceftriaxone 1 g daily. MRI brain wo contrast no acute findings. CTA head- no large vessel occlusion seen. ECHO was CONCLUSIONS LV systolic function is normal with EF of 55-60% Grade 1 diastolic dysfunction Trace mitral regurgitation Trace tricuspid regurgitation Mild pulmonic regurgitation She is doing well, no more similar episodes noted.Will discharge today and follow up in neurology clinic. Physical Exam Narrative: She is alert awake oriented x 3, hearing impaired but able to answer questions appropriately, not in acute distress Chest clear to auscultation bilaterally Cardiovascular normal heart sounds Abdomen soft nontender nondistended normal bowel sounds extremities no edema noted bilateral lower extremities Neurological speech normal, no motor or sensory deficits noted. Discharge Data Studies Completed and Pending Completed Studies During Hospitalization Category Date Time Status CT head thrombolytic [id number] Stat Cat Scan 02/15/24 12:35 Completed CTA head neck [CT angio headneck* [id number]] Stat Cat Scan 02/16/24 07:56 Completed XR chest 1V portable [id number] Stat Exams 02/15/24 12:30 Completed MR head wo con* [id number] Stat MRI 02/16/24 09:00 Completed Pending at discharge Category Date Time Status Urine Culture Stat Lab 02/15/24 13:14 Results CV. echo complete* [id number] Stat Ultrasound 02/15/24 15:53 Taken Radiology Impressions Chest X-Ray 02/15/24 12:30 Impression: Atherosclerosis. Head CT 02/15/24 12:35 IMPRESSION: 1. No evidence of intracranial hemorrhage or mass effect 2. Slight low-attenuation change in the LEFT MCA territory likely chronic or small vessel in etiology. 3. A few tiny chronic lacunar infarcts LEFT basal ganglia. 4. Vascular calcification 5. No acute intracranial findings. Notified Bg Reilly DO at 02/15/2024 12:43 PM. Head/Neck CTA 02/16/24 07:56 IMPRESSION: 1. No large vessel occlusion. 2. No large territorial infarct or intracranial bleed. IMPRESSION: No significant stenosis. REFERENCES: NASCET CRITERIA. The degree of stenosis in the cervical segment of the internal carotid artery is based on NASCET criteria. Normal is no stenosis. Mild is less than 50% stenosis. Moderate is 50-69% stenosis. Severe is 70% to 99% stenosis. Total occlusion is no detectable patent lumen. Head MRI 02/16/24 09:00 IMPRESSION: No acute infarct or acute intracranial bleed. Laboratory Results WBC 8.96 10^3/uL (3.29-11.43) 02/16/24 04:59 RBC 4.28 10^6/uL (3.85-5.65) 02/16/24 04:59 Hgb 12.60 g/dL (11.27-16.99) 02/16/24 04:59 Hct 40.5 % (36-47) 02/16/24 04:59 MCV 94.6 fl (85-98) 02/16/24 04:59 MCH 29.4 pg (27-33) 02/16/24 04:59 MCHC 31.1 g/dL (30-55) 02/16/24 04:59 RDW 13.0 % (12.1-15.1) 02/16/24 04:59 Plt Count 327 10^3/cmm (157-399) 02/16/24 04:59 MPV 9.5 fL (7.4-10.4) 02/16/24 04:59 Neut % (Auto) 53.3 % 02/16/24 04:59 Lymph % (Auto) 31.8 % 02/16/24 04:59 [place] % (Auto) 10.4 % 02/16/24 04:59 Eos % (Auto) 3.8 % 02/16/24 04:59 Baso % (Auto) 0.4 % 02/16/24 04:59 Neut # (Auto) 4.77 10^3/uL (1.8-7.7) 02/16/24 04:59 Lymph # (Auto) 2.9 10^3/uL (0.8-4.8) 02/16/24 04:59 [place] # (Auto) 0.9 10^3/uL (0.2-0.9) 02/16/24 04:59 Eos # (Auto) 0.3 10^3/uL (0.0-0.8) 02/16/24 04:59 Baso # (Auto) 0.0 10^3/uL (0.0-0.1) 02/16/24 04:59 Nucleated RBC % (auto) 0 % 02/16/24 04:59 Nucleated RBCs # 0.0 /100WBC 02/16/24 04:59 PT 13.00 SECONDS (12.1-14.9) 02/15/24 12:50 INR 0.95 (0.8-1.2) 02/15/24 12:50 APTT 25.9 SECONDS (23.9-36.7) 02/15/24 12:50 Sodium 138 mmol/L (136-145) 02/16/24 04:59 Potassium 4.0 mmol/L (3.5-5.1) 02/16/24 04:59 Chloride 104 mmol/L (98-107) 02/16/24 04:59 Carbon Dioxide 26 mmol/L (22-29) 02/16/24 04:59 Anion Gap 12.0 (5-19) 02/16/24 04:59 BUN 22 mg/dL (8-23) 02/16/24 04:59 Creatinine 1.3 mg/dL (0.5-0.9) H 02/16/24 04:59 GFR Calculation Not Reportable 02/16/24 04:59 Glucose 128 mg/dL (65-115) H 02/16/24 04:59 Calculated Osmolality 291 mOsm/kg (285-295) 02/16/24 04:59 Calcium 9.2 mg/dL (8.5-10.5) 02/16/24 04:59 Magnesium 1.5 mg/dL (1.7-2.3) L 02/16/24 04:59 Total Bilirubin 1.7 mg/dL (0.15-1.2) H 02/15/24 12:50 AST 12 U/L (0-32) 02/15/24 12:50 ALT 10 U/L (0-33) 02/15/24 12:50 Alkaline Phosphatase 102 U/L (35-105) 02/15/24 12:50 C-Reactive Protein 3.0 mg/L (0.0-4.9) 02/15/24 12:50 Total Protein 7.3 g/dL (6.6-8.7) 02/15/24 12:50 Albumin 4.0 g/dL (3.5-5.2) 02/15/24 12:50 Globulin 3.3 g/dL (1.3-4.6) 02/15/24 12:50 TSH 2.20 uIU/mL (0.27-4.20) 02/15/24 12:50 Urine Color Yellow (Yellow) 02/15/24 13:14 Urine Appearance Cloudy (CLEAR) A 02/15/24 13:14 Urine pH 7.5 (5-7) 02/15/24 13:14 Ur Specific [place] 1.015 (1.005-1.030) 02/15/24 13:14 Urine Protein 1+ (Negative) A 02/15/24 13:14 Urine Glucose (UA) Negative (Normal) 02/15/24 13:14 Urine Ketones Negative (Negative) 02/15/24 13:14 Urine Blood Non-haemolysed trace (Negative) 02/15/24 13:14 Urine Nitrate Positive (Negative) A 02/15/24 13:14 Urine Bilirubin Negative (Negative) 02/15/24 13:14 Urine Urobilinogen 1.0 mg/dL (Negative) 02/15/24 13:14 Ur Leukocyte Esterase 2+ (Negative) A 02/15/24 13:14 Urine RBC 3-5 /hpf (0-2) 02/15/24 13:14 Urine WBC 21-50 /hpf (0-5) H 02/15/24 13:14 Ur Squamous Epith Cells 21-50 /hpf (0-5) 02/15/24 13:14 Amorphous Sediment Not Reportable 02/15/24 13:14 Urine Bacteria Exceeds /hpf (NONE) 02/15/24 13:14 Hyaline Casts 1.21 /lpf 02/15/24 13:14 Urine Opiates Screen Negative ng/mL (Negative) 02/15/24 13:14 Ur Barbiturates Screen Negative ng/mL (Negative) 02/15/24 13:14 Ur Phencyclidine Scrn Negative ng/mL (Negative) 02/15/24 13:14 Ur Amphetamines Screen Negative ng/mL (Negative) 02/15/24 13:14 U Benzodiazepines Scrn Negative ng/mL (Negative) 02/15/24 13:14 Urine Cocaine Screen Negative ng/mL (Negative) 02/15/24 13:14 U Marijuana (THC) Screen Negative ng/mL (Negative) 02/15/24 13:14 Ethyl Alcohol < 10 mg/dL (0-10) 02/15/24 12:50 Vitals Last Vital Signs Temp 97.7 F 02/16/24 04:00 Pulse 84 02/16/24 08:56 Resp 16 02/16/24 08:56 BP 160/79 02/16/24 04:00 Pulse Ox 95 02/16/24 08:56 O2 Del Method Room Air 02/16/24 08:56 Discharge Plan Discharge Patient Disposition: Home Condition: Stable Prescriptions: New [place]ory Low Dose Aspirin 81 mg tablet,delayed release (DR/EC) 81 mg PO DAILY Qty: 30 0RF levofloxacin 750 mg tablet 750 mg PO DAILY 5 Days Qty: 5 0RF Continued lisinopril 40 mg tablet 40 mg PO DAILY omeprazole 20 mg capsule,delayed release(DR/EC) 20 mg PO DAILY cholecalciferol (vitamin D3) 25 mcg (1,000 unit) capsule 25 mcg PO DAILY meloxicam 15 mg tablet 15 mg PO DAILY ketoconazole 2 % shampoo See Rx Instructions .ROUTE .COMPLEX Rx Instructions: 1 applic topically up to 4 times weekly. albuterol sulfate 90 mcg/actuation HFA aerosol inhaler 2 puff INHALATION Q4H PRN (Reason: Shortness Of Breath) mometasone 0.1 % solution 1 applic TOPICAL DAILY PRN (Reason: Itching) Changed atorvastatin 20 mg tablet 40 mg PO DAILY 30 Days Qty: 0 0RF Discharge Orders: Discharge Order (Routine); Ordered 02/16/24 Ordered By: Sheila Garcia Referrals: Merlyn Tolbert MD [Physician] - 02/20/24 1:00 pm Isidra Brown MD [Staff Physician] - 02/18/24 11:00 am Tushar Martinez DO [Primary Care Provider] - Discharge Diet: Cardiac Discharge Activity: Increase activity as tolerated Patient Instructions: Opioid Safety Discharge Attestations Time Spent in Discharge Care*: less than 30 min Quality Metrics Clinical Quality Measures [ No reported AMI, CVA or VTE this stay] Coding Level of Care Code Acute Code for Chg Fwd Diagnoses TIA involving left internal carotid artery G45.1 Time Spent (min) 15
[2024-02-16 12:00] VITALS: BP 179/93; PULSE 80; RESP 14; TEMP 36.6; O2SAT 96
[2024-02-16 13:42] VITALS: BP 179/93; PULSE 80; RESP 14; TEMP 36.6; O2SAT 96
--- NOTE | 2024-02-16 14:15 | PC.NURSE ---
[facility] pharmacy called and asked for a quantity on the patient's atorvastatin and I reported 30 as the script was written for one tab a day for 30 days.
[2024-02-17 09:57] LABS: Glucose Point of Care 144 mg/dL (70-110)
== END 2024-02-16 13:00 | disposition home or self-care (01) ==
LOC: ER 14:22 → MEDSURG 15:04
PROVIDERS: Admitting Provider Internal Medicine; Emergency Provider Emergency Medicine; PCP Internal Medicine; Visit Provider Internal Medicine
DX: G45.1 Carotid artery syndrome (hemispheric) (principal); N30.00 Acute cystitis without hematuria; E78.5 Hyperlipidemia, unspecified; I10 Essential (primary) hypertension; K21.9 Gastro-esophageal reflux disease without esophagitis; R47.01 Aphasia; Z79.899 Other long term (current) drug therapy; Z88.0 Allergy status to penicillin; Z88.2 Allergy status to sulfonamides; M16.11 Unilateral primary osteoarthritis, right hip
CPT/HCPCS: 36415; 36416; 70450; 70496; 70498; 70551; 71045; 80048; 80053; 80306; 80307; 81001; 82962; 83735; 84443; 85025; 85610; 85730; 86140; 87077; 87086; 87186; 93005; 93306; 94664; 96365; 96366; 96375; 99285; G0378; J1956; J3490; J7030; Q9967

== ENCOUNTER 2024-02-18 09:48 | Outpatient (CLI) | payer MEDICARE, OTHER, SELFPAY ==
--- NOTE | 2024-02-18 10:00 | CT_ITS ---
WS: [id number] CT RIGHT hip, noncontrast HISTORY: RIGHT TOTAL HIP ARTHROPLASTY TECHNIQUE: Protocol for [facility] total knee replacement has been obtained. This includes axial imaging th rough the RIGHT hip, RIGHT knee. DLP: 851.56 mGy COMPARISON: None available. Severe degenerative changes involving the RIGHT hip joint and RIGHT femoral head. Loss of the normal joint space with remodeling. Subchondral cystic changes with sclerosis and hypertrophic bone formatio n on both sides of the joint. No acute fracture. Mild osteopenia. No destructive bone lesions. Scatte red femoral artery atherosclerotic plaque. Mild sigmoid diverticulosis. RIGHT knee: Negative. No acute process. No joint effusion. Popliteal artery atherosclerosis. CT/CT hip RT [facility] [id number] IMPRESSION: CT imaging provided for [facility] robotic RIGHT hip replacement.
== END 2024-02-18 09:49 | disposition home or self-care (01) ==
LOC: RAD 09:48
PROVIDERS: PCP Internal Medicine; Visit Provider Student in an Organized Health Care Education/Training Program
DX: Z01.818 Encounter for other preprocedural examination (principal); M16.11 Unilateral primary osteoarthritis, right hip; M85.651 Other cyst of bone, right thigh
CPT/HCPCS: 73700

== ENCOUNTER → 2024-02-20 12:58 | Outpatient (BNVA) | payer MEDICARE, OTHER, SELFPAY | PROVIDERS: PCP Internal Medicine; Visit Provider Specialist | DX: Z09 Encounter for follow-up examination after completed treatment for conditions other than malignant neoplasm (principal); G45.1 Carotid artery syndrome (hemispheric) | CPT/HCPCS: 99203; 99204 ==

== ENCOUNTER → 2024-02-22 10:24 | Outpatient (BNVA) | payer MEDICARE, OTHER, SELFPAY | PROVIDERS: PCP Internal Medicine; Visit Provider Family Medicine | DX: Z01.818 Encounter for other preprocedural examination (principal) | CPT/HCPCS: 81003 ==

== ENCOUNTER 2024-02-25 17:04 | Observation (INO) | payer MEDICARE, OTHER, SELFPAY ==
[2024-02-25] VITALS (11 sets, daily range): BP systolic 98–149; BP diastolic 60–98; PULSE 93–103; RESP 12–18; TEMP 36.3–36.7; O2SAT 92–97
[2024-02-25 12:51] LABS: Bilirubin Urine Negative (Negative); Blood Urine 1+ (Negative); Glucose Urine UA Negative (Normal); Ketones Urine Negative (Negative); Leukocyte Esterase Urine Trace (Negative); Nitrate Urine Negative (Negative); Protein Urine Negative (Negative); Urine Appearance Clear (CLEAR); Urine Color Yellow (Yellow); Urobilinogen Urine 0.2 mg/dL (Negative)
[2024-02-25 12:53] LABS: Add Urine Microscopic? YES; Bacteria Urine None Seen /hpf; Hyaline Casts Urine 2.46 /lpf; Squamous Epithelial Cell Urine 0-5 /hpf (0-5)
[2024-02-25 13:04] LABS: Add Urine Culture? No
--- NOTE | 2024-02-25 13:25 | ANES.PREANE2 ---
Pre-Anesthetic Assessment Height/Weight: Height 1.65 m Operation Date: 02/25/24 13:35 Proposed Procedures p Payam Robot Total Hip Arthroplasty posterior approach(Right) - Edgar Arias, Familial anesthetic complications: None Was Beta Su taken within 24 hours: N/A Was Clonidine taken within 24 hours: N/A Last intake: > 8 hrs Social No alcohol and No tobacco Exam alert, oriented x 3, clear to auscultation bilaterally and regular rate & rhythm Airway Mallampati: Class I Dentition: other (multiple missing) CV/HEM Echo LV systolic function is normal with EF of 55-60% Grade 1 diastolic dysfunction Trace mitral regurgitation Trace tricuspid regurgitation Mild pulmonic regurgitation GI Gastroesophageal Reflux Disease Metabolic Hyperlipidemia Neuropsych Transient Ischemic Attack Clear imaging, plavix was not started d/t upcoming surgery, seen by Dr. Tolbert Anesthetic Plan ASA status: 2 Anesthesia: Regional (specify below) Risk of > 500 ml blood loss (7ml/kg in children): Yes, adequate IV access and fluids planned Medications/Allergies Home Medications Medication Instructions Recorded Confirmed Last Taken Type cholecalciferol (vitamin D3) 25 25 mcg PO DAILY 01/04/24 02/22/24 02/22/24 History mcg (1,000 unit) capsule lisinopril 40 mg tablet 40 mg PO DAILY 01/04/24 02/22/24 02/22/24 History meloxicam 15 mg tablet 15 mg PO DAILY 01/04/24 02/22/24 02/19/24 History omeprazole 20 mg capsule,delayed 20 mg PO DAILY 01/04/24 02/22/24 02/22/24 History release albuterol sulfate 90 mcg/actuation 2 puff inhalation Q4H PRN 02/15/24 02/22/24 02/22/24 History aerosol inhaler Shortness Of Breath aspirin 81 mg tablet,delayed 81 mg PO DAILY #30 tabs 02/16/24 02/22/24 02/19/24 Rx release (Mallory Low Dose Aspirin) atorvastatin 20 mg tablet 40 mg (2 x 20 mg) PO DAILY 30 days 02/16/24 02/22/24 02/22/24 Rx #0 tabs Allergies Allergy/AdvReac Type Severity Reaction Status Date / Time Penicillins Allergy Intermediate ALGY-Hives Verified 02/22/24 08:10 Sulfa (Sulfonamide Allergy Intermediate ADR-Vomitin Verified 02/22/24 08:10 Antibiotics) g PFSH Anesthesia Social History Smoking and tobacco/nicotine status: never used tobacco/nicotine Data Anesthesia Urine 02/25/24 Range/Units 12:35 Urine Color Yellow (Yellow) Urine Appearance Clear (CLEAR) Urine pH 5.0 (5-7) Ur Specific [place] 1.020 (1.005-1.030) Urine Protein Negative (Negative) Urine Glucose (UA) Negative (Normal) Urine Ketones Negative (Negative) Urine Nitrate Negative (Negative) Urine Bilirubin Negative (Negative) Ur Leukocyte Esterase Trace A (Negative) Urine RBC 11-20 H (0-2) /hpf Urine WBC 11-20 H (0-5) /hpf Cardiac Studies: Echocardiogram 02/15/24
--- NOTE | 2024-02-25 13:43 | W.PM.OPSFHP ---
Same Day Surgery H&P Indication for Procedure/HPI DATE OF PROCEDURE: February 25, 2024 CHIEF COMPLAINT/INDICATIONFOR SURGICAL PROCEDURE: Right hip degenerative joint disease PREOP DIAGNOSIS: Right hip degenerative joint disease PLANNED PROCEDURE: Operation Date: 02/25/24 13:35 Proposed Procedures p Payam Robot Total Hip Arthroplasty posterior approach(Right) - Edgar Arias DO Medications/Allergies* Home Medications Medication Instructions Recorded Confirmed Type cholecalciferol (vitamin D3) 25 25 mcg PO DAILY 01/04/24 02/25/24 History mcg (1,000 unit) capsule lisinopril 40 mg tablet 40 mg PO DAILY 01/04/24 02/25/24 History meloxicam 15 mg tablet 15 mg PO DAILY 01/04/24 02/25/24 History omeprazole 20 mg capsule,delayed 20 mg PO DAILY 01/04/24 02/25/24 History release albuterol sulfate 90 mcg/actuation 2 puff inhalation Q4H PRN 02/15/24 02/25/24 History aerosol inhaler Shortness Of Breath Allergies/Adverse Reactions Allergy/AdvReac Type Severity Reaction Status Date / Time Penicillins Allergy Intermediate ALGY-Hives Verified 02/22/24 08:10 Sulfa (Sulfonamide Allergy Intermediate ADR-Vomitin Verified 02/22/24 08:10 Antibiotics) g Pertinent History/Comorbid Conditions* Social History Smoking and tobacco/nicotine status: never used tobacco/nicotine Pertinent Exam Findings alert, oriented x 3, operative site marked and procedure specific exam findings Please refer to detailed orthopedic examination on 01/04/2024: Right Hip Exam: -ROM IR 0 degrees -ROM ER 10 degrees -Pain with hip flexion and IR -Tender over anterior groin -Tender over lateral trochanteric bursa -Tight IT band noted -Tenderness over right SI joint -No lumbar spine tenderness -Negative straight leg test Recommendations Surgery/Procedure today Other Plans: Plan to proceed to the OR today for a right total hip arthroplasty?Payam robotic assisted through posterior approach. She is clear the preoperative clearance process she has been cleared by neurology with Dr. Tolbert as she had potentially a TIA recently was confirmed and seen by her on 02/20/2024 and okay to proceed also was seen evaluate by her preoperative clinic and her recheck of her UA she now has been asymptomatic she is been appropriately treated with Levaquin which has now cleared her UA her Chacon catheter UA today shows no bacteria present and negative for any recurrent UTI. She currently still remains asymptomatic. We also reviewed her x-rays as well as her preoperative CT scan. At this point in time we have an insignia stem with Lani which has ML and AP body fit. Reviewing of her Lucrecia classification she has Lucrecia B bone which does appear to be amendable for uncemented press-fit fixation. She understands and we talked about in detail we will start off with a plan for possible press-fit fixation but if her cortices to seem and appear to thin we will plan to proceed with cemented fixation we initially were thinking about cement but in further discussion on this and reviewing of her CT and x-rays I do feel as though she is more Lucrecia the bone quality and would be amendable to cementless fixation. Patient understands and agrees to proceed with current plan. She understands the ins and outs procedure the risk benefits complication alternatives to surgery and through shared decision making agrees to proceed with surgical invention. All questions answered at this time. Coding Level of Care Code Acute Code for Luca Kerr
[2024-02-25] MEDS: sodium chloride 0.9% 1,000 ML 30 ML IV (14:07)
[2024-02-25 14:09] LABS: Basophils # 0.1 10^3/uL (0.0-0.1); Basophils % 0.5 %; Eosinophils # 0.2 10^3/uL (0.0-0.8); Hematocrit 41.9 % (36-47); Lymphocytes # 2.9 10^3/uL (0.8-4.8); Lymphocytes % 29.6 %; Mean Corpuscular HGB Conc 32.5 g/dL (30-55); Mean Corpuscular Hemoglobin 30.4 pg (27-33); Mean Corpuscular Volume 93.7 fl (85-98); Mean Platelet Volume 9.8 fL (7.4-10.4); Monocytes # 0.8 10^3/uL (0.2-0.9); Neutrophils # 5.73 10^3/uL (1.8-7.7); Neutrophils % 59.6 %; Nucleated Red Blood Cells % 0 %; Platelet Count 346 10^3/cmm (157-399); Red Blood Count 4.47 10^6/uL (3.85-5.65); Red Cell Distribution Width 13.2 % (12.1-15.1); White Blood Count 9.62 10^3/uL (3.29-11.43)
[2024-02-25] MEDS: acetaminophen 1,000 MG/100 ML PIGGYBACK 400 MG IV ×2 (14:09→21:16)
[2024-02-25] MEDS: ketorolac 30 mg/mL INJ IVP (14:10)
[2024-02-25 14:27] LABS: Anion Gap 14.7 (5-19); Blood Urea Nitrogen 34 mg/dL (8-23); Calcium 9.4 mg/dL (8.5-10.5); Carbon Dioxide 27 mmol/L (22-29); Chloride 105 mmol/L (98-107); Glucose 115 mg/dL (65-115); Osmolality Calculated 303 mOsm/kg (285-295); Potassium 4.7 mmol/L (3.5-5.1); Sodium 142 mmol/L (136-145)
[2024-02-25] MEDS: ceFAZolin 2,000 MG in sodium chloride 0.9% (plus) 50 ML 100 MG IV ×2 (14:29→21:15)
[2024-02-25] MEDS: tranexamic acid 1,000 mg/10mL SDV 1000 MG IV (14:45)
[2024-02-25] MEDS: vancomycin 1,000 MG SDV 1000 MG XX (15:28)
--- NOTE | 2024-02-25 17:03 | P.OP_ITS ---
Operative Report Date of procedure: February 25, 2024 Surgeon: Edgar Arias DO Supervisor Dry Paste: Vahe Arias PA-C: PA was necessary for assistance in this case with leg positioning, hip reductions/trailing, retraction and protection of neurovascular structures as well as assistance in implantation wound closure and dressing application. Procedure: Preop Diagnosis?Right hip degenerative joint disease Post-op diagnosis: Right hip degenerative joint disease Procedure done: Right total hip arthroplasty?robotic assisted Payam?posterior?approach Implants: Lani total hip arthroplasty implants 56 mm cluster hole acetabular shell 6.5 mm x (30 & 20mm) acetabular screw Alpha code F MDM cementless metal liner [employer] Femoral stem size #5 high offset Alpha code MDM +0 mm head Surgeon: Edgar Arias DO Estimated blood loss: 150 mL IV fluids: 1000 mL Urine output: 75 mL Complications: None Condition: stable Disposition: floor Brief History: Patient's been seen and worked up by myself in the outpatient setting and findings consistent with Right hip degenerative joint disease. pt has failed conservative treatment this is causing severe pain and decreased mobility. We talked about his treatment options as far as nonoperative and operative intervention. pt ultimately through shared decision-making would like to proceed with a Right total hip arthroplasty. we detailed out risk benefits complications alternatives to surgical and nonsurgical treatment options. Understanding pt risk for surgery pt elects to proceed with Right total hip arthroplasty robotic assisted Payam utilizing a?posterior?approach. All questions answered. pt elects proceed with surgery today and consent obtained in PACU. Procedure: Patient was seen evaluate in preoperative holding area.? Consent was reviewed and signed with patient.? Correct extremity was then marked.? Patient seen evaluate by anesthesia department once cleared for surgery pt was taken back to the operative suite.? Patient underwent spinal anesthesia per the anesthesia department.? This point time pt was then placed on the operative suite and table.? Pt was then placed in lateral decubitus patient worked with the Right hip up.? Patient was secured in the lateral decubitus position with pegboard. All bony prominences well-padded he was properly secured to the bed.? At this point time the Right lower extremity was then prepped and draped in standard orthopedic fashion with care not to drape out the iliac wing for pelvic array placement.? Final timeout performed.? Patient received appropriate preoperative antibiotics. Started off with establishment of my pelvic array pins.? A small longitudinal incision was made directly over the iliac wing.? Sharp scalpel excision through skin and subcutaneous tissue directly onto bone.? Next I then loaded my pelvic pin.? This was then drilled through the iliac wing corridor with excellent fixation.? Next I then loaded the guide which was placed directly onto bone and then subsequently placed 2 more pins to secure fixation.? Next the pelvic array was then sent had excellent visualization with the Payam robot and was secured. EKG pad was placed on the distal lateral aspect of the femur and sterile aseptic technique and use as my distal reference point. Next I proceeded with my standard?posterior?approach.? Sharp scalpel through skin and subcutaneous tissue this was centered over the greater trochanter.? I then utilized a Thornton elevator over the gluteus jesús fascia.? Next the fascia was then split longitudinally with bipolar electrocautery.? Next a Charnley retractor was then placed.? All bone was then placed into the abductors.? A standard full-thickness release of the piriformis and the short external rotators along with the capsule to grade 1 full thick sleeve for later repair was then placed straight down to the lesser trochanter.? Lesser trochanter was then subsequently identified.? Prior to dislocating the hip we then placed our greater trochanter femur checkpoint.? We marked our appropriate checkpoint for referencing on pelvic array.? At this point in time we then established both of our checkpoints as well as referencing for leg lengths I utilized the EKG pad as my distal reference point. The legs were marked and traced to have appropriate position on the drapes to allow for accurate reading.? Preoperative leg lengths set. Once this was then established I then proceeded with dislocation of the femoral head.? At this point Hohmann's were then placed superiorly and inferiorly along the femoral neck..? The sciatic nerve was protected throughout this case.? At this point time I then utilized the Payam robot and referencing point to reference different aspects along the femoral head and neck for my appropriate neck length.? These were referenced on the inferior mid substance as well as up into the superior shoulder of the femoral neck.? This marked my oscillating saw was used to make my femoral neck cut.? Femoral head was then removed. Next the leg was placed in appropriate position and my anterior and?posterior?acetabular retractors then placed.? Next I excised the labrum and then remove the pulvinar.? I did do a small release of the inferior capsule which was severely taut to allow for easier placement of my reamers as well as reduction.? Acetabulum was thoroughly irrigated. At this point in time keeping my retractors in place I subsequently loaded up the [employer] robot for my acetabular reaming.?? Next I then set my 56 reamer under the [employer] robot and subsequently held this with appropriate preplanned preop planned version of 40 degrees of abduction angle as well as 20 degrees of anteversion.? This preoperative plan was then subsequently made to accommodate for ranges of motion of impingement?that was assessed preoperatively utilizing the [employer] robotic software technology. The small adjustments of abduction and anteversion accommodated no anterior hip impingement with the hip flexed at 90 degrees. I then subsequently reamed this to the appropriate depth with 56mm reamer.? We opened up the acetabular shell clusterhole of the 56 mm Lani this was then loaded onto my impacting system and then I subsequently impacted this to appropriate depth.? This was then removed from the robot and I used the Payam probe at the center to confirm on the CT scan?that this was down on bone which it was.? Next I then drilled and placed 2 acetabular screws with excellent fixation these were drilled and measured to be 30mm and 20mm this was in the?posterior?superior aspect of the acetabulum had excellent bite and fixation.? The cup was solid and had excellent press-fit fixation. next, opened the alpha code F MDM cementless liner then subsequently placed in appropriate position and impacted into place.? I then placed a sponge into the acetabulum to protect the polyethylene while my femur preparation was performed.? At this point time I then utilized a small rongeur to clear off the shoulder of the femoral neck to clear out the soft tissue envelope for my box osteotome.? Next box osteotome was used a canal finder was placed as well as a lateral lysing rattail rasp.? Once I was appropriately lateralized I then sequentially broached up to a size 5 femoral stem.? This was impacted to appropriate depth and flushed with my femoral neck cut.? This point I loaded a high offset with - 2.5mm neck and subsequently reduced the hip.? At this point in time the hip was taken through range of motion before evaluating with the robot on leg lengths.? Patient appeared to have room to increase on leg lengths clinically.? The hip was taken through range of motion and had excellent stability with hip flexion and internal rotation with no evidence of instability had an slightly increased shuck.? This point time utilized the Payam probe from our femur checkpoint down to her distal checkpoint. Satisfied with this trial implants, at this point I dislocated the hip and then called for my final implants with excellent stability in all planes.? Opened up a size 5 femoral insignia stem high offset.? My trials were then removed and then subsequently impacted my [employer] stem high offset to the same level.? This point in time I trialed up to a +0 mm neck length which helped match with Payam robotic assistance had appropriate leg lengths comparative to the contralateral hip and this was confirmed clinically as well as had excellent stability I felt as though this was best combination with leg lengths being equal as well as with stability and elected for the final +0 mm MDM femoral head. Final MDM femoral head component was then opened and the trunnion was dried and this was impacted with excellent fixation and the hip was subsequently reduced.? We measured our final leg lengths which were appropriate patient had excellent stability in all ranges of motion.? This point time a robotic pins and checkpoints were removed.? I remove the femur checkpoint as well as my pelvic array and iliac wing pins.? Appropriate counts were then made.? This point time thoroughly irrigated the wound bed with pulse lavage.? Vancomycin powder was then sprinkled into the wound bed.? I then performed a standard capsular and external rotator repair utilizing #5 Ethibond and this was tied and repaired through bone tunnels hip, sciatic nerve was protected through out this portion of the case. Was then kept in abduction external rotation and subsequently closed the fascial layer with Ethibond suture as well as running strata fix suture.? I then closed the deep subcutaneous layer as well as superficial subcutaneous layer with running strata fix suture as well as 3- 0strata fix for skin.? Prineo glue dressing was then placed over the skin.? I then irrigated the pelvic array pin site.? There is were then closed with interrupted 0, 2-0 vicryl suture and Monocryl as well as Prineo glue for the skin.? Incisions were then covered with ebony and Silverlon dressing.? Patient was awakened from anesthesia and taken to PACU in stable condition Disposition: Patient taken to PACU in stable condition.? Patient will receive appropriate discharge instructions as well as DVT prophylaxis and pain medication.? Patient will be admitted to the floor for observation should be evaluated by the internal medicine team for medical management.? Patient received appropriate DVT prophylaxis as well as pain medication PT/OT weightbearing as tolerated Right lower extremity with?posterior?hip precautions, Postoperative Abx and TXA.? We will follow-up with patient in the office in 2 weeks.? Patient understands agrees with current plan.? All questions answered.
--- NOTE | 2024-02-25 17:12 | XRR_ITS ---
PROCEDURE INFORMATION: Exam: XR Right Hip Exam date and time: 02/25/2024 5:22 PM Age: 83 years old Clinical indication: Device placement; Other: RT hip replacement; Prior surgery; Surgery date: Post-operative (0-2 days); Surgery type: Post op RT hip; Additional info: Post op noemi, do in pacu TECHNIQUE: Imaging protocol: Radiologic exam of the right hip. Views: 1 view hip with pelvis when performed. COMPARISON: CT hip RT [facility] [id number] 02/18/2024 10:11 AM FINDINGS: Bones/joints: Total right hip arthroplasty without immediate hardware complications. Soft tissues: Unremarkable. XR/XR hip RT 2-3V wo/w pel* [id number] IMPRESSION: Total right hip arthroplasty without immediate hardware complications.
--- NOTE | 2024-02-25 17:19 | W.PM.BPON ---
Date of Procedure: [02/25/2024] Surgeon: [Dr. Arias DO] Mammography Technologist(s): [Vahe Arias PA-C] Procedure(s) performed: [Right hip total arthroplasty with Payam robotic assist] Findings of the procedure(s): [Right hip degenerative joint disease with multiple arthritic bone changes in the femur and and osteophytes. Procedure went well and as planned.] Estimated blood loss: [150 mL] Specimen(s) removed: [Femoral head] Post-operative diagnosis: [Right hip degenerative joint disease]
--- NOTE | 2024-02-25 17:20 | PM.PACU ---
PACU note Narrative: Patient is a 83-year-old female who just underwent a right total hip arthroplasty. Pt transferred to PACU in stable condition. Dressing is dry. pt is awake and alert. pt can wiggle toes and plantarflex and dorsiflex foot. Distal pulses are palpable toes are warm and well-perfused. Cap refill is normal and under 2 seconds. Sensation to foot is intact. Pain is controlled. Exam: awake Disposition: admitted
--- NOTE | 2024-02-25 17:30 | ANE.PACU2 ---
Inpatient post-anesthesia follow up: Airway intact: Yes Vital signs: Temperature 97.7 F Pulse Rate 84 Respiratory Rate 17 Blood Pressure 149/69 Pulse Oximetry 96 Oxygen Delivery Me thod Room Air Oxygen Flow Rate 6 Fraction of Inspir ed Oxygen Hydration adequate: Yes Nausea and vomiting: No Pain level: 1 Mental status: Baseline
--- NOTE | 2024-02-25 18:02 | P.CONIM_ITS ---
Documented by User: Osman Pacheco MD 02/25/24 18:02 Providers/Reason For Consult 2 Attending Physician: Edgar Arias DO Primary Care Provider: Tushar Martinez DO History of Present Illness History of Present Illness Parris Shin is a 83 year old female Medications/Allergies Home Medications Medication Instructions Recorded Confirmed Last Taken Type cholecalciferol (vitamin D3) 25 25 mcg PO DAILY 01/04/24 02/25/24 02/22/24 History mcg (1,000 unit) capsule lisinopril 40 mg tablet 40 mg PO DAILY 01/04/24 02/25/24 02/22/24 History meloxicam 15 mg tablet 15 mg PO DAILY 01/04/24 02/25/24 02/19/24 History omeprazole 20 mg capsule,delayed 20 mg PO DAILY 01/04/24 02/25/24 02/22/24 History release albuterol sulfate 90 mcg/actuation 2 puff inhalation Q4H PRN 02/15/24 02/25/24 Unknown History aerosol inhaler Shortness Of Breath aspirin 81 mg tablet,delayed 81 mg PO DAILY #30 tabs 02/16/24 02/25/24 02/19/24 Rx release (Mallory Low Dose Aspirin) atorvastatin 20 mg tablet 40 mg (2 x 20 mg) PO DAILY 30 days 02/16/24 02/25/24 02/22/24 Rx #0 tabs apixaban 2.5 mg tablet (Eliquis) 2.5 mg PO BID blood clot 02/25/24 Unknown Rx prevention 35 days #70 tabs oxycodone 5 mg tablet 5 mg PO Q6H PRN pain postop 7 days 02/26/24 Unknown Rx #28 tabs Allergies Allergy/AdvReac Type Severity Reaction Status Date / Time Penicillins Allergy Intermediate ALGY-Hives Verified 02/22/24 08:10 Sulfa (Sulfonamide Allergy Intermediate ADR-Vomitin Verified 02/22/24 08:10 Antibiotics) g Current Medications Generic Name Dose Route Start Last Admin Trade Name Freq PRN Reason Stop Dose Admin Sodium Chloride 1,000 mls @ 30 mls/hr 02/25/24 12:15 02/25/24 16:10 Sodium Chloride 0.9% IV 02/26/24 12:14 Infused .Q24H ADDISON Infusion PFSH Acute 2 PFSH: Social History Smoking and tobacco/nicotine status: never used tobacco/nicotine Vitals/I&O/Wt Last Vital Signs Temp 97.9 F 02/25/24 17:53 Pulse 95 02/25/24 17:53 Resp 16 02/25/24 17:53 BP 143/79 02/25/24 17:53 Pulse Ox 93 02/25/24 17:53 O2 Del Method Room Air 02/25/24 17:53 O2 Flow Rate 6 02/25/24 17:12 02/25/24 02/25/24 02/25/24 06:59 14:59 22:59 Intake Total 100 / 100 1100 / 1200 Output Total 150 / 150 Balance 100 / 100 950 / 1050 Weight last 48 hrs Weight 77.564 kg Data 02/26/24 05:05 02/26/24 05:05 A&P Assessment and plan (1) S/P total right hip arthroplasty: (2) Hypertension: (3) GERD (gastroesophageal reflux disease): Coding Level of Care Code Acute Code for Chg Fwd Diagnoses S/P total right hip arthroplasty Z96.641 Hypertension I10 GERD (gastroesophageal reflux disease) K21.9 Documented by User: Maida Ring MD 03/01/24 17:48 Providers/Reason For Consult 2 Consulting Physician/Specialty*: Internal medicine Reason for Consult*: Medical management History of Present Illness History of Present Illness Parris Shin is a 83 year old female With past medical history of hypertension, GERD was admitted to the hospital for right total hip arthroplasty. Medicine was consulted for medical management. Medications/Allergies Home Medications Medication Instructions Recorded Confirmed Last Taken Type cholecalciferol (vitamin D3) 25 25 mcg PO DAILY 01/04/24 02/25/24 02/22/24 History mcg (1,000 unit) capsule lisinopril 40 mg tablet 40 mg PO DAILY 01/04/24 02/25/24 02/22/24 History meloxicam 15 mg tablet 15 mg PO DAILY 01/04/24 02/25/24 02/19/24 History omeprazole 20 mg capsule,delayed 20 mg PO DAILY 01/04/24 02/25/24 02/22/24 History release albuterol sulfate 90 mcg/actuation 2 puff inhalation Q4H PRN 02/15/24 02/25/24 Unknown History aerosol inhaler Shortness Of Breath aspirin 81 mg tablet,delayed 81 mg PO DAILY #30 tabs 02/16/24 02/25/24 02/19/24 Rx release (Mallory Low Dose Aspirin) atorvastatin 20 mg tablet 40 mg (2 x 20 mg) PO DAILY 30 days 02/16/24 02/25/24 02/22/24 Rx #0 tabs apixaban 2.5 mg tablet (Eliquis) 2.5 mg PO BID blood clot 02/25/24 Unknown Rx prevention 35 days #70 tabs oxycodone 5 mg tablet 5 mg PO Q6H PRN pain postop 7 days 02/26/24 Unknown Rx #28 tabs Allergies Allergy/AdvReac Type Severity Reaction Status Date / Time Penicillins Allergy Intermediate ALGY-Hives Verified 02/22/24 08:10 Sulfa (Sulfonamide Allergy Intermediate ADR-Vomitin Verified 02/22/24 08:10 Antibiotics) g PFSH Acute 2 PFSH: Social History Smoking and tobacco/nicotine status: never used tobacco/nicotine Physical Exam 2 Narrative: Seen status post surgery. Normal S1-S2 Clear to auscultation bilaterally Abdomen soft nontender Patient sitting up comfortably in chair. Surgical bandage in place. Data 02/26/24 05:05 02/26/24 05:05 A&P Assessment and plan (1) S/P total right hip arthroplasty: (2) Hypertension: (3) GERD (gastroesophageal reflux disease): Plan #Status post total right hip arthroplasty postop day 1 #Hypertension #GERD ? Continue lisinopril 40 daily ? Continue pain management with oxycodone ? Continue Protonix Atorvastatin. Patient will need DVT prophylaxis at discharge Medicine will continue to follow while patient is hospitalized Surgical management as per orthopedic surgery. Consult Attestations 2 Medical Necessity Statement: Defer to primary team Coding Level of Care Code Acute Code for Chg Fwd Diagnoses S/P total right hip arthroplasty Z96.641 Hypertension I10 GERD (gastroesophageal reflux disease) K21.9
[2024-02-25] MEDS: calcium carb-vit d 600mg/400unit 1 Tablet 1 EACH PO (18:26)
[2024-02-25] MEDS: sennosides-docusate Tablet 2 TAB PO (18:26)
[2024-02-25] MEDS: iron polysaccharide complex 150 mg Capsule PO (18:26)
[2024-02-25] MEDS: lactated ringers 1,000 ML 75 ML IV (18:27)
[2024-02-25] MEDS: mupirocin oint 22 gm 1 APPLIC NASAL (18:35)
[2024-02-25] MEDS: oxyCODONE 5 mg IR Tab/Cap PO (18:42)
[2024-02-25] MEDS: ondansetron 2 mg/ML SDV 2 mL 4 MG IVP (18:42)
[2024-02-25] MEDS: tranexamic acid 1,000 MG/100 ML PREMIX 600 MG IV (22:48)
[2024-02-25] MEDS: TRAMadol 50 mg Tablet PO (22:50)
[2024-02-26] VITALS: BP 109/66; PULSE 105; RESP 20; TEMP 36.3; O2SAT 94
[2024-02-26] MEDS: ceFAZolin 2,000 MG in sodium chloride 0.9% (plus) 50 ML 100 MG IV (05:09)
[2024-02-26] MEDS: acetaminophen 1,000 MG/100 ML PIGGYBACK 400 MG IV (05:10)
[2024-02-26 05:19] LABS: Basophils # 0.1 10^3/uL (0.0-0.1); Basophils % 0.3 %; Eosinophils % 0.3 %; Hematocrit 37.3 % (36-47); Lymphocytes # 1.6 10^3/uL (0.8-4.8); Lymphocytes % 10.5 %; Mean Corpuscular HGB Conc 31.4 g/dL (30-55); Mean Corpuscular Hemoglobin 30.7 pg (27-33); Mean Corpuscular Volume 97.9 fl (85-98); Mean Platelet Volume 9.9 fL (7.4-10.4); Monocytes # 0.9 10^3/uL (0.2-0.9); Monocytes % 5.6 %; Neutrophils # 12.59 10^3/uL (1.8-7.7); Neutrophils % 82.8 %; Nucleated Red Blood Cells % 0 %; Platelet Count 301 10^3/cmm (157-399); Red Blood Count 3.81 10^6/uL (3.85-5.65); Red Cell Distribution Width 13.2 % (12.1-15.1); White Blood Count 15.21 10^3/uL (3.29-11.43)
[2024-02-26 05:45] LABS: Blood Urea Nitrogen 37 mg/dL (8-23); Calcium 8.3 mg/dL (8.5-10.5); Carbon Dioxide 21 mmol/L (22-29); Chloride 105 mmol/L (98-107); Creatinine Clr Calc Pharmacy 27.6164; Glucose 178 mg/dL (65-115); Osmolality Calculated 299 mOsm/kg (285-295); Sodium 138 mmol/L (136-145)
[2024-02-26 07:37] VITALS: BP 134/86; PULSE 91; RESP 17; TEMP 36.5; O2SAT 95
[2024-02-26] MEDS: iron polysaccharide complex 150 mg Capsule PO (08:56)
[2024-02-26] MEDS: lisinopril 20 mg Tablet PO (08:56)
[2024-02-26] MEDS: chlorhexidine gluconate 0.12% Btl 473 mL 30 ML MUCOUS MEM (08:56)
[2024-02-26] MEDS: mupirocin oint 22 gm 1 APPLIC NASAL (08:56)
[2024-02-26] MEDS: multivitamin therapeutic Tablet 1 TAB PO (08:56)
[2024-02-26] MEDS: calcium carb-vit d 600mg/400unit 1 Tablet 1 EACH PO (08:56)
[2024-02-26] MEDS: apixaban 5 mg Tablet 2.5 MG PO (08:56)
[2024-02-26] MEDS: pantoprazole DR 40 mg Tablet PO (08:57)
[2024-02-26] MEDS: sennosides-docusate Tablet 2 TAB PO (08:57)
[2024-02-26] MEDS: TRAMadol 50 mg Tablet PO (09:00)
[2024-02-26 10:26] VITALS: PULSE 90; RESP 17; O2SAT 97
[2024-02-26] MEDS: ketorolac 30 mg/mL INJ 15 MG IVP (10:46)
[2024-02-26] MEDS: ondansetron 2 mg/ML SDV 2 mL 4 MG IVP (10:46)
[2024-02-26 11:20] VITALS: BP 149/69; PULSE 84; RESP 17; TEMP 36.5; O2SAT 96
--- NOTE | 2024-02-26 12:18 | PM.DCS ---
Discharge Providers Date of Admission: 02/25/24 17:04 Date of Discharge: February 26, 2024 Attending Provider at Admission: Edgar Arias DO Attending Provider at Discharge: Edgar Arias DO Consults: Hospitalist?Dr. 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 Once cleared by anesthesia for surgery subsequently was taken back to the operative suite underwent anesthesia per the anesthesia department and then underwent right total hip arthroplasty with Payam robotic assistance posterior approach without any complications. Patient was then subsequently taken back to PACU in stable condition recovering well. Once recovered, patient was then subsequently admitted to the floor postoperatively. Internal medicine was consulted for medical management assistance. Patient weightbearing as tolerated to the right lower extremity, posterior hip precautions. PT/OT. Pain control. DVT prophylaxis. Postoperative antibiotics and TXA. dressing was change as needed. Internal medicine was on board and appreciate their medical management and assistance. Pt was determined on postoperative day [1] the patient was stable for discharge from orthopedic as well as internal medicine standpoint. Patient's labs were monitored daily. Patient will receive appropriate pain medication as well as DVT prophylaxis postoperatively. Appropriate discharge instructions as well. Patient was then discharged in stable condition. Patient will discharge home. Pt will follow-up with Orthopedics in the office in 2 weeks. Patient understands and agrees with current plan. All questions answered. Understands there is any issues or concerns and contact the office. Physical Exam Narrative: Examination of the right hip demonstrates patient dressings are on in place that are clean dry and intact normal postoperative swelling and tenderness palpation about the right hip appropriate leg lengths appreciated, patient is able to wiggle toes plantarflex and dorsiflex ankle sensations intact light touch distally. Distal pulses are palpable compartments are compressible calf soft nontender. Discharge Data Studies Completed and Pending Completed Studies During Hospitalization Category Date Time Status XR hip RT 2-3V wo/w pel* [id number] Routine Exams 02/25/24 17:12 Completed Pending at discharge Category Date Time Status Basic Metabolic Panel AM LABS Lab 02/27/24 04:00 Ordered Basic Metabolic Panel AM LABS Lab 02/28/24 04:00 Ordered Complete Blood Count w/Auto AM LABS Lab 02/27/24 04:00 Ordered Complete Blood Count w/Auto AM LABS Lab 02/28/24 04:00 Ordered Radiology Impressions Hip/Pelvis X-Ray 02/25/24 17:12 IMPRESSION: Total right hip arthroplasty without immediate hardware complications. Laboratory Results WBC 15.21 10^3/uL (3.29-11.43) H 02/26/24 05:05 RBC 3.81 10^6/uL (3.85-5.65) L 02/26/24 05:05 Hgb 11.70 g/dL (11.27-16.99) 02/26/24 05:05 Hct 37.3 % (36-47) 02/26/24 05:05 MCV 97.9 fl (85-98) 02/26/24 05:05 MCH 30.7 pg (27-33) 02/26/24 05:05 MCHC 31.4 g/dL (30-55) 02/26/24 05:05 RDW 13.2 % (12.1-15.1) 02/26/24 05:05 Plt Count 301 10^3/cmm (157-399) 02/26/24 05:05 MPV 9.9 fL (7.4-10.4) 02/26/24 05:05 Neut % (Auto) 82.8 % 02/26/24 05:05 Lymph % (Auto) 10.5 % 02/26/24 05:05 [place] % (Auto) 5.6 % 02/26/24 05:05 Eos % (Auto) 0.3 % 02/26/24 05:05 Baso % (Auto) 0.3 % 02/26/24 05:05 Neut # (Auto) 12.59 10^3/uL (1.8-7.7) H 02/26/24 05:05 Lymph # (Auto) 1.6 10^3/uL (0.8-4.8) 02/26/24 05:05 [place] # (Auto) 0.9 10^3/uL (0.2-0.9) 02/26/24 05:05 Eos # (Auto) 0.0 10^3/uL (0.0-0.8) 02/26/24 05:05 Baso # (Auto) 0.1 10^3/uL (0.0-0.1) 02/26/24 05:05 Nucleated RBC % (auto) 0 % 02/26/24 05:05 Nucleated RBCs # 0.0 /100WBC 02/26/24 05:05 Sodium 138 mmol/L (136-145) 02/26/24 05:05 Potassium 5.0 mmol/L (3.5-5.1) 02/26/24 05:05 Chloride 105 mmol/L (98-107) 02/26/24 05:05 Carbon Dioxide 21 mmol/L (22-29) L 02/26/24 05:05 Anion Gap 17.0 (5-19) 02/26/24 05:05 BUN 37 mg/dL (8-23) H 02/26/24 05:05 Creatinine 1.7 mg/dL (0.5-0.9) H 02/26/24 05:05 GFR Calculation Not Reportable 02/26/24 05:05 Glucose 178 mg/dL (65-115) H 02/26/24 05:05 Calculated Osmolality 299 mOsm/kg (285-295) H 02/26/24 05:05 Calcium 8.3 mg/dL (8.5-10.5) L 02/26/24 05:05 Urine Color Yellow (Yellow) 02/25/24 12:35 Urine Appearance Clear (CLEAR) 02/25/24 12:35 Urine pH 5.0 (5-7) 02/25/24 12:35 Ur Specific [place] 1.020 (1.005-1.030) 02/25/24 12:35 Urine Protein Negative (Negative) 02/25/24 12:35 Urine Glucose (UA) Negative (Normal) 02/25/24 12:35 Urine Ketones Negative (Negative) 02/25/24 12:35 Urine Blood 1+ (Negative) A 02/25/24 12:35 Urine Nitrate Negative (Negative) 02/25/24 12:35 Urine Bilirubin Negative (Negative) 02/25/24 12:35 Urine Urobilinogen 0.2 mg/dL (Negative) 02/25/24 12:35 Ur Leukocyte Esterase Trace (Negative) A 02/25/24 12:35 Urine RBC 11-20 /hpf (0-2) H 02/25/24 12:35 Urine WBC 11-20 /hpf (0-5) H 02/25/24 12:35 Ur Squamous Epith Cells 0-5 /hpf (0-5) 02/25/24 12:35 Amorphous Sediment Not Reportable 02/25/24 12:35 Urine Bacteria None seen /hpf (NONE) 02/25/24 12:35 Hyaline Casts 2.46 /lpf 02/25/24 12:35 Blood Type A Positive 02/25/24 14:01 Rho(D) Type Rh positive 02/25/24 14:01 Antibody Screen Negative 02/25/24 14:01 Vitals Last Vital Signs Temp 97.7 F 02/26/24 11:20 Pulse 84 02/26/24 11:20 Resp 17 02/26/24 11:20 BP 149/69 02/26/24 11:20 Pulse Ox 96 02/26/24 11:20 O2 Del Method Room Air 02/26/24 11:20 O2 Flow Rate 6 02/25/24 17:12 Discharge Plan Discharge Patient Disposition: Home Health Service Condition: Stable Prescriptions: New Eliquis 2.5 mg tablet 2.5 mg PO BID 35 Days Qty: 70 0RF Continued lisinopril 40 mg tablet 40 mg PO DAILY omeprazole 20 mg capsule,delayed release(DR/EC) 20 mg PO DAILY cholecalciferol (vitamin D3) 25 mcg (1,000 unit) capsule 25 mcg PO DAILY albuterol sulfate 90 mcg/actuation HFA aerosol inhaler 2 puff INHALATION Q4H PRN (Reason: Shortness Of Breath) aspirin [Mallory Low Dose Aspirin] 81 mg tablet,delayed release (DR/EC) 81 mg PO DAILY Qty: 30 0RF atorvastatin 20 mg tablet 40 mg PO DAILY 30 Days Qty: 0 0RF Held meloxicam 15 mg tablet 15 mg PO DAILY Hold Instructions: Resume on 03/25/24. No Action oxycodone 5 mg tablet 5 mg PO Q6H PRN (Reason: pain postop) 7 Days Qty: 28 0RF Discharge Orders: Discharge Order (Routine); Ordered 02/26/24 Ordered By: Edgar Arias Referrals: [facility] [Outside] Edgar Arias DO [Physician] - 03/11/24 10:30 am Tushar Martinez DO [Primary Care Provider] - 02/29/24 11:00 am (Appointment will be with ENA Conner) Discharge Diet: Regular Discharge Activity: Limit activity as instructed, Use walker/crutches as instructed and As per PT/OT instructions Patient Instructions: Oxycodone, Rapid Release (By mouth) (ETH-Oxydose, Oxy IR,..., Ondansetron (By mouth) (Zofran, Zofran ODT, Zuplenz), Apixaban (By mouth) (Eliquis), Acute Wound Care (DC), Precautions after Total Joint Replacement Surgery (DC), Total Hip Replacement (DC), Hip Abduction Pillow (DC), Opioid Safety, Post Anesthesia Care Activity Restrictions/Additional Instructions: Orthopedic discharge instructions: Julissa Dressing--Keep dressing on and dry. After 3 days you can remove some of the dressing and shower. disconnect battery pack when showering. Julissa dressing will stay on until follow up appt in 2 weeks. The battery pack for the dressing will at 5-7 days. Battery pack can be removed and discarded once batteries . Patient should keep dressings clean dry and intact Okay to shower over dressings if they do become wet these should be removed and new dressings applied Keep incisions clean dry and intact, leave Silverlon bandage dressings on in place for 7 days after that may rinse incisions with warm soapy water pat dry and redress with a dry dressing Weight-bear as tolerated to operative lower extremity Posterior hip precautions as instructed by physical therapy (no hip flexion past 90 degrees, no excessive internal rotation, do not cross legs or past midline, keep abduction pillow while lying in bed between legs) Ice as needed for pain and swelling Take pain medication as prescribed Take antinausea medication as needed Supplement with Citracal vitamin D for bone health and healing Pain medication can cause constipation. take [id number] stool softeners and or MiraLAX. Take blood thinner as prescribed (Eliquis) Follow-up in the orthopedic office in 2 weeks Contact the office for any questions or concerns Discharge Attestations Time Spent in Discharge Care*: less than 30 min Quality Metrics Clinical Quality Measures [ No reported AMI, CVA or VTE this stay] Coding Level of Care Code Acute Code for Chg Usha
[2024-02-26 12:55] VITALS: BP 149/69; PULSE 84; RESP 17; TEMP 36.5; O2SAT 96
== END 2024-02-26 14:33 | disposition home health service (06) ==
LOC: MEDSURG 17:04
PROVIDERS: Physician Assistant; Admitting Provider Student in an Organized Health Care Education/Training Program; PCP Internal Medicine; Visit Provider Student in an Organized Health Care Education/Training Program
PROC: 8E0Y0CZ Robotic Assisted Procedure of Lower Extremity, Open Approach (ICD-10-PCS; CPT 27130; principal; 2024-02-25 13:05)
DX: M16.11 Unilateral primary osteoarthritis, right hip (principal); I10 Essential (primary) hypertension; K21.9 Gastro-esophageal reflux disease without esophagitis; E78.5 Hyperlipidemia, unspecified; Z86.73 Personal history of transient ischemic attack (TIA), and cerebral infarction without residual deficits
CPT/HCPCS: 20985; 27130; 36415; 51702; 73502; 80048; 81001; 85025; 86850; 86900; 97110; 97116; 97161; 97167; C1713; C1776; G0378; J0131; J0690; J1885; J2371; J2405; J2704; J3010; J3370; J7030; J7120

== ENCOUNTER → 2024-03-11 10:27 | Outpatient (BNVA) | payer MEDICARE, OTHER, SELFPAY | PROVIDERS: PCP Internal Medicine; Visit Provider Student in an Organized Health Care Education/Training Program | DX: Z96.641 Presence of right artificial hip joint (principal); Z48.89 Encounter for other specified surgical aftercare | CPT/HCPCS: 73502; 99024 ==

== ENCOUNTER → 2024-05-08 10:31 | Outpatient (BNVA) | payer MEDICARE, OTHER, SELFPAY | PROVIDERS: PCP Internal Medicine; Visit Provider Student in an Organized Health Care Education/Training Program | DX: Z96.641 Presence of right artificial hip joint (principal); R39.9 Unspecified symptoms and signs involving the genitourinary system | CPT/HCPCS: 73502; 81000; 99213 ==

== ENCOUNTER → 2024-08-11 08:49 | Outpatient (BNVA) | payer MEDICARE, OTHER, SELFPAY | PROVIDERS: PCP Internal Medicine; Visit Provider Nurse Practitioner Family | DX: L21.8 Other seborrheic dermatitis (principal); L81.4 Other melanin hyperpigmentation; X32.XXXA Exposure to sunlight, initial encounter; Z08 Encounter for follow-up examination after completed treatment for malignant neoplasm; Z85.828 Personal history of other malignant neoplasm of skin; L57.0 Actinic keratosis | CPT/HCPCS: 17000; 99213 ==

== ENCOUNTER → 2024-09-02 14:18 | Outpatient (BNVA) | payer MEDICARE, OTHER, SELFPAY | PROVIDERS: PCP Family Medicine; Visit Provider Student in an Organized Health Care Education/Training Program | DX: Z96.641 Presence of right artificial hip joint (principal) | CPT/HCPCS: 73502; 99213 ==

== ENCOUNTER → 2025-02-24 13:07 | Outpatient (BNVA) | payer MEDICARE, OTHER, SELFPAY | PROVIDERS: PCP Family Medicine; Visit Provider Student in an Organized Health Care Education/Training Program | DX: Z96.641 Presence of right artificial hip joint (principal); Z47.1 Aftercare following joint replacement surgery | CPT/HCPCS: 73502; 99213 ==

== ENCOUNTER → 2025-04-27 14:44 | Outpatient (BNVA) | payer MEDICARE, OTHER, SELFPAY | PROVIDERS: PCP Family Medicine; Visit Provider Nurse Practitioner Family | DX: L21.8 Other seborrheic dermatitis (principal); L82.1 Other seborrheic keratosis; L81.4 Other melanin hyperpigmentation; Z08 Encounter for follow-up examination after completed treatment for malignant neoplasm; Z85.828 Personal history of other malignant neoplasm of skin; L57.0 Actinic keratosis | CPT/HCPCS: 17000; 99214 ==